=== PATIENT | female | born 1955 | race Caucasian/White ===

== ENCOUNTER 2016-10-24 13:00 | Inpatient (IN) | payer OTHER ==
[~2016-10-24] VITALS: Ht 154.9 cm; Wt 54.8 kg
--- NOTE | 2016-10-24 14:27 | DIAGNOSTIC IMAGING REPORT ---
PROCEDURE: XR CHEST 1 VIEW INDICATION: CHEST PAIN, initial encounter TECHNIQUE: Portable AP view 01:42 p.m. COMPARISON: None. FINDINGS: Right mid lung and basilar infiltrates. Large left pleural effusion with left basilar consolidation. Cardiac silhouette partially obscured. Normal pulmonary vascularity. Bones are unremarkable. IMPRESSION: 1. Large left pleural effusion with left basilar consolidation 2. Right mid lung and basilar infiltrates
--- NOTE | 2016-10-24 15:43 | DIAGNOSTIC IMAGING REPORT ---
PROCEDURE: CTA THORAX WITH CONTRAST INDICATION: SOB AND MULTIPLE PULMONARY INFILTRATES TECHNIQUE: 84 ml of Isovue 370 was injected intravenously and axial images were obtained of the entire thorax with 3D sagittal and coronal MIP reconstructions. COMPARISON: Chest 10/24/2016 FINDINGS: No evidence of pulmonary emboli. There are moderate right upper, middle and lower lobe infiltrates. Dense consolidation of the entire left lower lobe and mild consolidation in the left upper lobe and lingula. Large loculated left and small right pleural effusions. Normal airways. Mild pretracheal, bilateral hilar and subcarinal adenopathy. Normal aorta without dissection or aneurysm pill Normal heart size. Bilateral thyroid nodules. Mild degenerative changes of the spine. IMPRESSION: 1. No evidence of pulmonary emboli 2. Consolidation of the entire left lower lobe with additional bilateral infiltrates consistent with pneumonia, associated large loculated left pleural effusion suspicious for empyema. Recommend thoracentesis. 3. Results discussed with Dr. Tompkins
--- NOTE | 2016-10-24 15:54 | ED ORDER SUMMARY ---
..... Patient: DEYSI CAMPBELL OrderSheet [facility] VisitID: [id number] [address] [place] [address] 61y, F Registration Date/Time: 10/24/2016 ORDER SHEET Weight: 54.4 kg (estimated) Allergies: Codeine GENERAL ORDERS: Chest 1V Urgent (13:30 10/24/2016 Darrell NAILS) (Ack 13:41 Kalen) (13:46 EHjt R.N.) Director Of Distance Learning (Continuous) (13:31 10/24/2016 Darrell NAILS) (13:46 Kimberly R.N.) Cardiac Panel Stat (13:31 10/24/2016 Darrell NAILS) (Ack 13:41 Kalen) (13:46 EHjt R.N.) BNP Urgent (13:31 10/24/2016 Darrell NAILS) (Ack 13:41 Kalen) (13:46 Kimberly R.N.) D-Dimer Urgent (13:31 10/24/2016 Darrell NAILS) (Ack 13:41 Kalen) (13:46 Kimberly R.N.) Oxygen (2 L/min) (NC) (13:31 10/24/2016 Darrell NAILS) (13:46 Kimberly R.N.) Pulse oximeter (13:31 10/24/2016 Darrell NAILS) (13:46 Kimberly R.N.) EKG - ER Stat (13:31 10/24/2016 Darrell NAILS) (Ack 13:41 Kalen) (13:43 LTapper) Peak Flow (pre & post) Stat (13:34 10/24/2016 Darrell NAILS) (Ack 13:41 Kalen) (13:46 Kimberly R.N.) Lipase Urgent (13:36 10/24/2016 Darrell NAILS) (Ack 13:41 Kalen) (13:46 Kimberly R.N.) CTA Thorax w Cont (No) (CHART) Urgent (14:35 10/24/2016 Darrell NAILS) (Ack 14:50 Kalen) (14:55 Kimberly R.N.) Blood Culture (No) (N/A) Urgent (15:40 10/24/2016 Darrell NAILS) (Ack 16:01 [facility] (16:44 Kimberly R.N.) Lactate, Serum Urgent (15:41 10/24/2016 Darrell NAILS) (Ack 16:01 Kalen) (16:44 Kimberly R.N.) PCT (Procalcitonin) Urgent (15:41 10/24/2016 Darrell NAILS) (Ack 16:01 [facility]) (16:44 Kimberly R.N.) - (HOLD THE ANTIBIOTICS UNTIL THE BLOOD CULTURES ARE DRAWN.) (15:46 10/24/2016 Darrell NAILS) (16:44 Kimberly R.N.) MEDICATION ORDERS: Albuterol Neb Tx 2 unit doses (NOW, HHN) (13:33 10/24/2016 Darrell NAILS) (13:58 JZigltim) Potassium Chloride PO 40 meq (NOW) (14:35 10/24/2016 Darrell NAILS) (15:29 Kimberly R.N.) IV FLUIDS: IV Saline Lock (13:31 10/24/2016 Darrell NIALS) (13:54 Kimberly R.N.) Ceftriaxone IV 2 gm/50mL (NOW) (15:41 10/24/2016 Darrell NAILS) (15:59 Kimberly R.N.) Azithromycin IV 500 mg/250 mL (NOW) (15:42 10/24/2016 Darrell NAILS) Dilaudid IV 0.5 mg (NOW) (15:48 10/24/2016 Darrell NAILS) (15:58 Kimberly R.N.) Zofran IV 4 mg (NOW) (15:48 10/24/2016 Darrell NAILS) (16:26 Kimberly R.N.) Vancomycin IV 25 mg/kg (AFTER BLOOD CULTURE) (15:50 10/24/2016 Darrell NIALS) (17:35 Kimberly R.N.) ORDER SHEET NOTES: [Electronically signed by Sarah Marion R.N. (18:38 10/24/2016)] [Electronically signed by Krish Tompkins MD (22:57 10/24/2016)] [Electronically locked/signed by Sarah Marion R.N. (18:38 10/24/2016)]
--- NOTE | 2016-10-24 15:54 | ED NURSING NOTES ---
Clinical Report - Nurses [facility] [address] [place] [address] 10/24/2016 13:00 Patient: DEYSI CAMPBELL TRIAGE Triage time 1305 PM. Acuity: LEVEL 3. Chief Complaint: "FLU", FEVER, COUGH, SORE THROAT and BODY ACHES. Alert. No acute distress. SEPSIS SCREEN: Sepsis Screen. Negative (no infection suspected/documented). ROMI COMA SCORE: Romi Coma Scale: 15- eyes open spontaneously (4); best verbal response- oriented x 4 (5); best motor response- obeys commands (6). --13:20 Sarah Marion R.N. 13:06 10/24/16. BP: 126/42 (regular adult cuff) taken on the left arm, via an automated monitor, while sitting. HR: 86. RR: 19. O2 saturation: 86% on room air. Temp: 97.8 F (oral). Pain level now: 5/10. --13:20 Sarah Marion R.N. Weight: 54.4 kg estimated. Height/Length: 61 inches Per Patient. BMI: 22.7. --13:11 Sarah Marion R.N. Medications None. --13:48 Sarah Marion R.N. Medication/allergy information source: the patient. --13:20 Sarah Marion R.N. Allergies Codeine. --13:48 Sarah Marion R.N. History Arrived by EMS, and from home. Historian: patient. Primary physician (none). ( Pt states feeling sick for the past 2 weeks, coughing fever, diarrhea, chills, SOB, hurts when coughs. Pt states family members sick as well. Pt has not been to a doctor in years. Pt states does not know who called the ambulance.). Onset. (2 weeks). She has had contact with a sick individual. She has had chest congestion, chills, fatigue and diarrhea. No recent travel. 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 (dayquil). EMS treatment CAR INSTALLATIONS SUPERVISOR verbally communicated. BP: 120 / 45 lying. Temp: 982. O2 saturation: 89 room air. Upon arrival patient awake. Oxygen being administered via nasal cannula. PAST MEDICAL HX: Immunizations: status is unknown. Last normal menstrual period- 30 years. SOCIAL HX: Heavy tobacco smoker- less than 1 pack per day. No alcohol use. She has had contact with a sick family member with suspected "flu". No infectious disease exposure. FALL RISK ASSESSMENT: Fall risk assessment completed. No fall risk identified. NUTRITIONAL RISK ASSESSMENT: The nutritional risk assessment revealed no deficiencies. FUNCTIONAL ASSESSMENT: Functional assessment: no impairments noted. LEARNING NEEDS ASSESSMENT: The learning needs assessment revealed no barriers. --13: Sarah Marion R.N. PROBLEMS: Pedal Edema. Tetanus Status. Diarrhea. --:33 Sarah Marion R.N. ADDITIONAL SURGERIES: Hysterectomy. --13:33 Sarah Marion R.N. Interventions ID band on patient. --13: Sarah Marion R.N. PHYSICAL ASSESSMENT To room via stretcher. GENERAL / NEURO / PSYCH: Alert. Oriented X 4. Appears in no acute distress. HEENT: Mucous membranes are pink. RESPIRATORY: Cough. Right mid- costochondral tenderness. Expiratory wheezes in the right lung base posteriorly and mid-lung posteriorly. CVS: Capillary refill less than 2 seconds. Pulses within normal limits. GI / : Abdomen soft and nontender. SKIN: Skin intact. Skin is warm and dry. Normal skin turgor. --13:21 Sarah Marion R.N. NURSING PROGRESS NOTES The initial plan of care for this patient has been created This plan of care was discussed with the patient. Oxygen administered at 2 liters. Pulse oximeter applied; monitor alarms on. Patient gowned. Reassurance given. Two patient identifiers checked. Call light placed in reach. Side rails up x 1. Brakes of bed on. Brakes of chair on. --13: Sarah Marion R.N. 13:09 10/24/16. RR: 18. O2 saturation: 92%. O2 started via nasal cannula at 2 liters/minute. --13: Sarah Marion R.N. EKG time: (1342 PM). EKG was performed by a tech and shown to the ED physician. --13:44 Mauro Ojeda 13:54 10/24/2016 Site #1 started via IV in the right upper arm with an 20g angiocath; one attempt. Blood drawn: rainbow set. Labeled in the presence of the patient and sent to the lab. Saline lock flushed with 10 mL saline. --13:54 Sarah Marion R.N. 13:58 10/24/2016 Albuterol Neb TX Nebulizer 2 unit dose given. Given by the respiratory therapist. Allergies verified and confirmed 5 rights. Chandra Bhakta --13:58 Chandra Bhakta Cardiac rhythm: normal sinus rhythm. Oxygen administered. Pulse oximeter applied. Reassurance given. The patient is calm and resting quietly. Overall patient status is the same- she states feels better. RESPIRATORY: The patient reports cough. No respiratory distress. [facility] ([facility]56 PM). --14:56 Sarah Marion R.N. 15:29 10/24/2016 Potassium Chloride (Potassium Chloride ER) PO Tablets 40 meq given. Allergies verified and confirmed 5 rights. --15:29 Sarah Marion R.N. 15:29 10/24/16. BP: 120/51 (regular adult cuff) taken on the left arm, via an automated monitor, while lying. HR: 96. RR: 30. O2 saturation: 90%. O2 started via nasal cannula at 4 liters/minute. Temp: 98.1 F (oral). Pain level now: 5/10. --15:33 Sarah Marion R.N. Cardiac rhythm: normal sinus rhythm. Oxygen administered by nasal cannula at 2 liters. Pulse oximeter applied. Reassurance given. The patient is calm. Overall patient status is the same- she states feels the same. RESPIRATORY: The patient reports cough. Patient returned from CT. (1530 PM). Two patient identifiers checked. Call light placed in reach. Side rails up x 2. Brakes of bed on. Critical value received by 1426 PM. K: 2.3. Critical value read back. Verified lab result and patient ID. ED physician notifed of critical value. Orders were received. --15:33 Sarah Marion R.N. 15:58 10/24/2016 Dilaudid (HYDROmorphone HCl PF) IVP 0.5 mg given over 1 minute(s) via site #1. Allergies verified, confirmed 5 rights and sedative warning given to the patient. IV patency established. IV site checked: no pain, redness, or swelling. IV flushed thoroughly pre- and post-medication administration. IVP given by RN. --15:58 Sarah Marion R.N. 15:59 10/24/2016 Started 2 gm of Ceftriaxone IVPB in bag #1 50 mL; at 50 mL/hr over 20 minute(s) via site #1 via IV pump. Allergies verified and confirmed 5 rights. IV patency established. IV site checked: no pain, redness, or swelling. IV flushed thoroughly pre- and post-medication administration. --15:59 Sarah Marion R.N. Cardiac rhythm: normal sinus rhythm. Oxygen increased to 5 liters by nasal cannula. Pulse oximeter applied. Reassurance given. Reassessment after oxygen administered and medication administered. She is calm and has had no adverse reaction. Overall patient status is improved- she states feels the same. RESPIRATORY: The patient reports cough. Denies difficulty breathing. Respiratory distress present. Two patient identifiers checked. Call light placed in reach. Side rails up x 2. Bed placed in lowest position. Brakes of bed on. Brakes of chair on. Patient waiting for admit bed and (awating on ICU bed). ( Dr. Ramirez at bedside, pt resting, IBX will be administered as ordered). --16:40 Sarah Marion R.N. 16:00 10/24/16. BP: 112/50. HR: 89. RR: 30. O2 saturation: 93%. O2 started via nasal cannula at 5 liters/minute. Pain level now: 12/21. --16:40 Sarah Marion R.N. 16:20 10/24/2016 Ceftriaxone IVPB Discontinued: bag #1 completed upon admission. Total amount infused: 50 mL. IV patency established. IV site checked: no pain, redness, or swelling. IV flushed thoroughly. --16:45 Sarah Marion R.N. 16:26 10/24/2016 Zofran (Ondansetron HCl) IVP 4 mg given over 2 minute(s) via site #1. Allergies verified and confirmed 5 rights. IV patency established. IV site checked: no pain, redness, or swelling. IV flushed thoroughly pre- and post-medication administration. IVP given by RN. --16:26 Sarah Marion R.N. 16:30 10/24/2016 Dilaudid IVP Response: no adverse reaction. --16:45 Sarah Marion R.N. 16:45 10/24/2016 Zofran IVP Response: no adverse reaction. --16:45 Sarah Marion R.N. 16:47 10/24/16. HR: 86. RR: 28. O2 saturation: 93%. Pain level now: 12/21. --16:51 Sarah Marion R.N. Cardiac rhythm: normal sinus rhythm. Oxygen increased to 12 liters and 90% by venturi mask. Reassurance given. --16:51 Sarah Marion R.N. 17:00 10/24/2016 Started 1 gm of Vancomycin IVPB; at 150 mL/hr over 1 hour(s) via site #1 via IV pump. Allergies verified and confirmed 5 rights. IV patency established. IV site checked: no pain, redness, or swelling. IV flushed thoroughly pre- and post-medication administration. --17:35 Sarah Marion R.N. 17:56 10/24/2016 Vancomycin IVPB Discontinued: bag #1 completed upon admission. Total amount infused: 200 mL. IV patency established. IV site checked: no pain, redness, or swelling. IV flushed thoroughly. --17:56 Sarah Marion R.N. Cardiac rhythm: normal sinus rhythm. Oxygen administered by venturi mask at 12 liters and 90%. Pulse oximeter applied. Reassurance given. Reassessment after oxygen administered. She has had no adverse reaction. Overall patient status is improved- she states feels better. RESPIRATORY: The patient reports cough. Decreased breath sounds in the bases bilaterally. Two patient identifiers checked. Call light placed in reach. Side rails up x 1. Bed placed in lowest position. Brakes of bed on. --17:59 Sarah Marion R.N. 17:00 10/24/16. BP: 99/73. HR: 89. RR: 28. O2 saturation: 93%. Temp: 98 F (oral). Pain level now: 12/21. --17:59 Sarah Marion R.N. Care transferred and report given (JC meeks). --18:38 Sarah Marion R.N. DISPOSITION / DISCHARGE 18:20 10/24/2016 Site #1 reassessed; infusing well. Line flushed with saline. Good blood return present. Converted to saline lock. Flushed with 10 mL saline. --18:35 Sarah Marion R.N. Cardiac rhythm: normal sinus rhythm. Departure time: 1829 PM. Condition at departure: improved and stable. The goals identified in the patient's plan of care were met. Admitted to the Critical Care Unit (1829 PM). Report was given to a nurse. Report included patient's care, treatment, medications, reviewed medication reconcilliation, and condition (including any recent changes or anticipated changes). All questions were answered. Report was acknowledged and care was transferred. ( Pt transferred safely to CCU, Azithromax will be administered in CCU, IV intact, care transferred). FALL RISK ASSESSMENT: Fall risk assessment completed. No fall risk identified. --18:37 Sarah Marion R.N. 18:34 10/24/16. BP: 95/62 (regular adult cuff) taken on the left arm, via an automated monitor, while sitting. HR: 89. RR: 28. O2 saturation: 93%. O2 started via Venti mask at 12 liters/minute. Temp: 98.2 F (oral). Pain level now: 12/21. --18:37 Sarah Marion R.N. Locked/Released at 10/24/2016 18:38 by Sarah Marion R.N.
--- NOTE | 2016-10-24 15:54 | ED ORDER SUMMARY ---
..... Patient: DEYSI CAMPBELL OrderSheet [facility] VisitID: [id number] [address] [place] [address] 61y, F Registration Date/Time: 10/24/2016 ORDER SHEET Weight: 54.4 kg (estimated) Allergies: Codeine GENERAL ORDERS: Chest 1V Urgent (13:30 10/24/2016 Darrell NAILS) (Ack 13:41 Kalen) (13:46 EHjt R.N.) Plastics Nurse (Continuous) (13:31 10/24/2016 Darrell NAILS) (13:46 Kimberly R.N.) Cardiac Panel Stat (13:31 10/24/2016 Darrell NAILS) (Ack 13:41 Kalen) (13:46 EHjt R.N.) BNP Urgent (13:31 10/24/2016 Darrell NAILS) (Ack 13:41 Kalen) (13:46 Kimberly R.N.) D-Dimer Urgent (13:31 10/24/2016 Darrell NAILS) (Ack 13:41 Kalen) (13:46 Kimberly R.N.) Oxygen (2 L/min) (NC) (13:31 10/24/2016 Darrell NAILS) (13:46 Kimberly R.N.) Pulse oximeter (13:31 10/24/2016 Darrell NAILS) (13:46 Kimberly R.N.) EKG - ER Stat (13:31 10/24/2016 Darrell NAILS) (Ack 13:41 Kalen) (13:43 LTapper) Peak Flow (pre & post) Stat (13:34 10/24/2016 Darrell NAILS) (Ack 13:41 Kalen) (13:46 Kimberly R.N.) Lipase Urgent (13:36 10/24/2016 Darrell NAILS) (Ack 13:41 Kalen) (13:46 Kimberly R.N.) CTA Thorax w Cont (No) (CHART) Urgent (14:35 10/24/2016 Darrell NAILS) (Ack 14:50 Kalen) (14:55 Kimberly R.N.) Blood Culture (No) (N/A) Urgent (15:40 10/24/2016 Darrell NAILS) (Ack 16:[facility]) (16:44 Kimberly R.N.) Lactate, Serum Urgent (15:41 10/24/2016 Darrell NAILS) (Ack 16:01 Kalen) (16:44 Kimberly R.N.) PCT (Procalcitonin) Urgent (15:41 10/24/2016 Darrell NAILS) (Ack 16:01 [facility]) (16:44 Kimberly R.N.) - (HOLD THE ANTIBIOTICS UNTIL THE BLOOD CULTURES ARE DRAWN.) (15:46 10/24/2016 Darrell NAILS) (16:44 Kimberly R.N.) MEDICATION ORDERS: Albuterol Neb Tx 2 unit doses (NOW, HHN) (13:33 10/24/2016 Darrell NAILS) (13:58 JZigltim) Potassium Chloride PO 40 meq (NOW) (14:35 10/24/2016 Darrell NAILS) (15:29 Kimberly R.N.) IV FLUIDS: IV Saline Lock (13:31 10/24/2016 Darrell NAILS) (13:54 Kimberly R.N.) Ceftriaxone IV 2 gm/50mL (NOW) (15:41 10/24/2016 Darrell NAILS) (15:59 Kimberly R.N.) Azithromycin IV 500 mg/250 mL (NOW) (15:42 10/24/2016 Darrell NAILS) Dilaudid IV 0.5 mg (NOW) (15:48 10/24/2016 Darrell NAILS) (15:58 Kimberly R.N.) Zofran IV 4 mg (NOW) (15:48 10/24/2016 Darrell NAILS) (16:26 Kimberly R.N.) Vancomycin IV 25 mg/kg (AFTER BLOOD CULTURE) (15:50 10/24/2016 Darrell NAILS) (17:35 Kimberly R.N.) ORDER SHEET NOTES: [Electronically signed by Sarah Marion R.N. (18:38 10/24/2016)] [Electronically signed by Krish Tompkins MD (22:57 10/24/2016)] [Electronically locked/signed by Sarah Marion R.N. (18:38 10/24/2016)]
--- NOTE | 2016-10-24 15:54 | ED CLINICAL REPORT ---
Clinical Report - Physicians/Mid Levels [facility] [address] [place] [address] 10/24/2016 13:00 Patient: DEYSI CAMPBELL Time Seen: 13:13. HISTORY OF PRESENT ILLNESS Chief Complaint: DYSPNEA. This started 2 weeks ago; Cough and aches, gradually worse. and is still present. It was gradual in onset. The dyspnea is described as moderate (to severe). The dyspnea is worsened by cough and is improved by rest. The patient has had scant amounts of sputum, a cough, dyspnea on exertion, chest pain (bilat) and orthopnea. She has had paroxysmal nocturnal dyspnea and experienced sweating episodes. No fever, wheezing, calf pain, foot swelling or numbness. No palpitations. (2 family members with cough). Similar symptoms previously: None. Recent medical care: Not recently seen/assessed. REVIEW OF SYSTEMS The patient has had chills, muscle aches, a cough and difficulty breathing. No fever, decreased vision, ear pain, sore throat or calf pain. No pedal edema, abdominal pain, black stools, bloody stools or constipation. No diarrhea, nausea, vomiting, urinary frequency or joint pain. No skin rash, headache or difficulty with urination. PAST HISTORY PCP: None Illness Denied Ops: Hysterectomy Hosp: Above. SOCIAL HISTORY Current every day smoker. ADDITIONAL NOTES The nursing notes have been reviewed. PHYSICAL EXAM Vital Signs: 10/24/2016 18:34 BP: 95/62. HR: 89. RR: 28. O2 saturation: 93%. Temp: 98.2 F. Pain level now: 12/21. 10/24/2016 17:00 BP: 99/73. HR: 89. RR: 28. O2 saturation: 93%. Temp: 98 F. Pain level now: 12/21. 10/24/2016 16:47 HR: 86. RR: 28. O2 saturation: 93%. Pain level now: 12/21. 10/24/2016 16:00 BP: 112/50. HR: 89. RR: 30. O2 saturation: 93%. Pain level now: 12/21. 10/24/2016 15:29 BP: 120/51. HR: 96. RR: 30. O2 saturation: 90%. Temp: 98.1 F. Pain level now: 01/20. 10/24/2016 13:09 RR: 18. O2 saturation: 92%. 10/24/2016 13:06 BP: 126/42. HR: 86. RR: 19. O2 saturation: 86%. Temp: 97.8 F. Pain level now: 01/20. Appearance: Alert. (Looks chronically ill). Eyes: Eyes normal inspection. ENT: Pharynx normal. Neck: Normal inspection. No jugular venous distention. CVS: Normal heart rate and rhythm. Heart sounds normal. Respiratory: (Bronchial breathsounds L posterioir Rales R posterior Decreased breath sounds L anterior). Abdomen: Soft and nontender. Skin: Skin warm. Normal skin color. Extremities: Extremities exhibit normal ROM. No lower extremity edema. LABS, X-RAYS, AND EKG EKG: No acute process. The study has been independently viewed by me. Chest X-ray: Medium-sized infiltrate in the right upper lobe and right middle lobe and large, consolidated infiltrate in the left lingula and left lower lobe. Chest CT: (No PE, has bilateral infiltrates with large L pleural effusion/empyema). The study was interpreted by the radiologist and contemporaneously by me and discussed with the radiologist. Laboratory Tests: CBC w Diff: (PARISH: 10/24/2016 13:53) ( MsgRcvd 10/24/2016 15:19) Final results Test Result Flag Units (Reference) WHITE BLOOD COUNT 24.3 H K/uL (4.5-11.5) MANUAL DIFFERENTIAL TO FOLLOW. RED BLOOD COUNT 4.01 M/uL (4.00-5.20) HEMOGLOBIN 11.5 L gm/dL (12.0-16.0) HEMATOCRIT 34.4 L % (36.0-46.0) MEAN CELL VOLUME 86 fL (80-100) MEAN CORPUSCULAR HGB 29 pg (26-34) MEAN CORPUSCULAR HGB CONC 34 g/dL (31-37) RED CELL DISTRIBUTION WIDTH 14.5 % (11.6-14.8) PLATELET COUNT 498 H K/uL (150-400) POLY % 74 % (50-75) BAND % 10 H % (0-8) LYMPH 14 L % (25-40) MONO 1 L % (3-14) EOSINOPHIL % 0 % (0-4) BASOPHIL % 0 % (0-2) METAMYELOCYTE % 1 % (0-1) MYELOCYTE 0 % (0-1) OTHER CELL TYPE 0 HYPOCHROMIA 1+ ANISOCYTOSIS 1+ [id number]: (PARISH: 10/24/2016 13:53) ( [facility] [place] 10/[place]/[facility] 14:15) Final results Test Result Flag Units (Reference) D-DIMER QUANTITATIVE 3.77 H ug/mLFEU (0.27-0.52) The primary value of this quantitative assay relates toits negative predictive value (i.e. exclusion) of pulmonaryembolism/deep vein thrombosis/DIC.Elevated levels of d-dimer may also occur with:, age, cancer, inflammation, liver disease,post-op, infection, hematoma, coronary disease, peripheralarteriopathy, bleeding disorders and thrombolytic treatment.Results should be correlated with other clinical andradiological data.Testing Methodology: Latex Immunoassay Lactate, Serum: (PARISH: 10/24/2016 15:45) ( [facility] 10/24/2016 16:37) Final results Test Result Flag Units (Reference) LACTIC ACID 0.9 mmol/L (0.4-2.0) [id number]: (PARISH: 10/24/2016 15:45) ( [facility] [place] 10/24/2016 16:32) Final results Test Result Flag Units (Reference) PROCALCITONIN 1.2 H ng/mL (0-0.5) PCT Concentration: Interpretation : Risk/option for action PCT <=0.5 ng/mL : Systemic : Low risk forinfection(sepsis): progression to severeis not likely. : systemic infection.Local bacterial : CAUTION-PCT levelsinfection is : below 0.5 ng/mL do notpossible. : exclude an infection,because localizedinfections (withoutsystemic signs) may beassociated with suchlow levels. If PCT ismeasured very earlyafter a bacterialchallenge (usually <6hours), these valuesmay still be low. Inthis case PCT shouldbe re-assessed 6-24hours later. PCT >0.5 and : Systemic infection: Moderate risk for<= 2 ng/mL : (sepsis) is : progression to severepossible, but : systemic infection.other conditions : The patient should beare known to : closely monitoredelevate PCT. : both clinically andby re-assessing PCTwithin 6-24 hours. PCT > 2 ng/mL : Systemic infection: High risk for(sepsis) is likely: progression to severeunless other : systemic infection.causes are known. : PCT >= 10 ng/mL : Important systemic: High likelihood ofinflammatory : severe sepsis orresponse, almost : septic shock.exclusively due to:severe bacterial :sepsis or septic :shock. : BNP: (PARISH: 10/24/2016 13:53) ( MsgRcvd 10/24/2016 14:31) Final results Test Result Flag Units (Reference) B-TYPE NATRIURETIC PEPTIDE 166 H pg/ml (5-100) Magnesium: (PARISH: 10/24/2016 13:53) ( MsgRcvd 10/24/2016 14:27) Final results Test Result Flag Units (Reference) GLUCOSE 107 mg/dL (70-110) BUN 23 H mg/dL (7-18) CREATININE 0.7 mg/dL (0.6-1.3) Estimated GFR >60 mL/min Estimated GFR- >60 mL/min Note: Persistent reduction over 3 months in eGFR<60 mL/min/1.73 m2 defines CKD. Patients with eGFR values>=60 mL/min/1.73 m2 may also have CKD if evidence ofpersistent proteinuria. Additional information may be foundat www.[email or web address].org. SODIUM 145 mmol/L (136-145) POTASSIUM 2.3 *L mmol/L (3.5-5.1) CRITICAL RESULTS CALLEDCalled to KEYLA REDD RN 10/24/16 1424Were 2 patient identifiers used? YWas the result read back? Y CHLORIDE 106 mmol/L (98-107) CARBON DIOXIDE 28 mmol/L (21-32) CALCIUM 8.4 L mg/dL (8.5-10.1) TOTAL PROTEIN 6.2 L g/dL (6.4-8.2) ALBUMIN 1.7 L g/dL (3.3-5.0) BILIRUBIN, TOTAL 0.7 mg/dL (0.0-1.0) ALKALINE PHOSPHATASE 273 H U/L (46-116) AST (SGOT) 12 L U/L (15-37) ALT (SGPT) 17 U/L (12-78) MAGNESIUM 2.5 H mg/dL (1.8-2.4) LIPASE 69 L U/L (73-393) CPK 18 L U/L (24-260) TROPONIN I <0.05 L ng/mL (0.00-1.5) TROPONIN REFERENCE RANGE:<0.1 NEGATIVE0.1-1.5 INDETERMINANT>1.5 POSITIVE . PROGRESS AND PROCEDURES Course of Care: 13:29 10/24/16. Hypoxic 14:01 10/24/16. Large bilateral infiltrates. Most of 15:41 10/24/16. CT back. Initial antibiotics Ceftriaxone, azithromycin and vancomycin. 15:59 10/24/16. Discussed with Dr Ramirez. Will admit to ICU in patient Dr Ramirez has seen the patient in the ED. Disposition orders written. Disposition: Admitted. CLINICAL IMPRESSION BILATERAL PNEUMINIA WITH L SIDED EFFUSION/EMPYEMA HYPOXEMIA. HYPOKALEMIA. (Electronically signed by Krish Tompkins MD 10/24/2016 22:57)
--- NOTE | 2016-10-24 15:54 | ED CLINICAL REPORT ---
Clinical Report - Physicians/Mid Levels [facility] [address] [place] [address] 10/24/2016 13:00 Patient: DEYSI CAMPBELL Time Seen: 13:13. HISTORY OF PRESENT ILLNESS Chief Complaint: DYSPNEA. This started 2 weeks ago; Cough and aches, gradually worse. and is still present. It was gradual in onset. The dyspnea is described as moderate (to severe). The dyspnea is worsened by cough and is improved by rest. The patient has had scant amounts of sputum, a cough, dyspnea on exertion, chest pain (bilat) and orthopnea. She has had paroxysmal nocturnal dyspnea and experienced sweating episodes. No fever, wheezing, calf pain, foot swelling or numbness. No palpitations. (2 family members with cough). Similar symptoms previously: None. Recent medical care: Not recently seen/assessed. REVIEW OF SYSTEMS The patient has had chills, muscle aches, a cough and difficulty breathing. No fever, decreased vision, ear pain, sore throat or calf pain. No pedal edema, abdominal pain, black stools, bloody stools or constipation. No diarrhea, nausea, vomiting, urinary frequency or joint pain. No skin rash, headache or difficulty with urination. PAST HISTORY PCP: None Illness Denied Ops: Hysterectomy Hosp: Above. SOCIAL HISTORY Current every day smoker. ADDITIONAL NOTES The nursing notes have been reviewed. PHYSICAL EXAM Vital Signs: 10/24/2016 18:34 BP: 95/62. HR: 89. RR: 28. O2 saturation: 93%. Temp: 98.2 F. Pain level now: 12/21. 10/24/2016 17:00 BP: 99/73. HR: 89. RR: 28. O2 saturation: 93%. Temp: 98 F. Pain level now: 12/21. 10/24/2016 16:47 HR: 86. RR: 28. O2 saturation: 93%. Pain level now: 12/21. 10/24/2016 16:00 BP: 112/50. HR: 89. RR: 30. O2 saturation: 93%. Pain level now: 12/21. 10/24/2016 15:29 BP: 120/51. HR: 96. RR: 30. O2 saturation: 90%. Temp: 98.1 F. Pain level now: 01/20. 10/24/2016 13:09 RR: 18. O2 saturation: 92%. 10/24/2016 13:06 BP: 126/42. HR: 86. RR: 19. O2 saturation: 86%. Temp: 97.8 F. Pain level now: 01/20. Appearance: Alert. (Looks chronically ill). Eyes: Eyes normal inspection. ENT: Pharynx normal. Neck: Normal inspection. No jugular venous distention. CVS: Normal heart rate and rhythm. Heart sounds normal. Respiratory: (Bronchial breathsounds L posterioir Rales R posterior Decreased breath sounds L anterior). Abdomen: Soft and nontender. Skin: Skin warm. Normal skin color. Extremities: Extremities exhibit normal ROM. No lower extremity edema. LABS, X-RAYS, AND EKG EKG: No acute process. The study has been independently viewed by me. Chest X-ray: Medium-sized infiltrate in the right upper lobe and right middle lobe and large, consolidated infiltrate in the left lingula and left lower lobe. Chest CT: (No PE, has bilateral infiltrates with large L pleural effusion/empyema). The study was interpreted by the radiologist and contemporaneously by me and discussed with the radiologist. Laboratory Tests: CBC w Diff: (PARISH: 10/24/2016 13:53) ( MsgRcvd 10/24/2016 15:19) Final results Test Result Flag Units (Reference) WHITE BLOOD COUNT 24.3 H K/uL (4.5-11.5) MANUAL DIFFERENTIAL TO FOLLOW. RED BLOOD COUNT 4.01 M/uL (4.00-5.20) HEMOGLOBIN 11.5 L gm/dL (12.0-16.0) HEMATOCRIT 34.4 L % (36.0-46.0) MEAN CELL VOLUME 86 fL (80-100) MEAN CORPUSCULAR HGB 29 pg (26-34) MEAN CORPUSCULAR HGB CONC 34 g/dL (31-37) RED CELL DISTRIBUTION WIDTH 14.5 % (11.6-14.8) PLATELET COUNT 498 H K/uL (150-400) POLY % 74 % (50-75) BAND % 10 H % (0-8) LYMPH 14 L % (25-40) MONO 1 L % (3-14) EOSINOPHIL % 0 % (0-4) BASOPHIL % 0 % (0-2) METAMYELOCYTE % 1 % (0-1) MYELOCYTE 0 % (0-1) OTHER CELL TYPE 0 HYPOCHROMIA 1+ ANISOCYTOSIS 1+ [id number]: (PARISH: 10/24/2016 13:53) ( [facility] [place] 10/24/2016 14:15) Final results Test Result Flag Units (Reference) D-DIMER QUANTITATIVE 3.77 H ug/mLFEU (0.27-0.52) The primary value of this quantitative assay relates toits negative predictive value (i.e. exclusion) of pulmonaryembolism/deep vein thrombosis/DIC.Elevated levels of d-dimer may also occur with:, age, cancer, inflammation, liver disease,post-op, infection, hematoma, coronary disease, peripheralarteriopathy, bleeding disorders and thrombolytic treatment.Results should be correlated with other clinical andradiological data.Testing Methodology: Latex Immunoassay Lactate, Serum: (PARISH: 10/24/2016 15:45) ( [facility] 10/24/2016 16:37) Final results Test Result Flag Units (Reference) LACTIC ACID 0.9 mmol/L (0.4-2.0) [id number]: (PARISH: 10/24/2016 15:45) ( [facility] 16[facility]32) Final results Test Result Flag Units (Reference) PROCALCITONIN 1.2 H ng/mL (0-0.5) PCT Concentration: Interpretation : Risk/option for action PCT <=0.5 ng/mL : Systemic : Low risk forinfection(sepsis): progression to severeis not likely. : systemic infection.Local bacterial : CAUTION-PCT levelsinfection is : below 0.5 ng/mL do notpossible. : exclude an infection,because localizedinfections (withoutsystemic signs) may beassociated with suchlow levels. If PCT ismeasured very earlyafter a bacterialchallenge (usually <6hours), these valuesmay still be low. Inthis case PCT shouldbe re-assessed 6-24hours later. PCT >0.5 and : Systemic infection: Moderate risk for<= 2 ng/mL : (sepsis) is : progression to severepossible, but : systemic infection.other conditions : The patient should beare known to : closely monitoredelevate PCT. : both clinically andby re-assessing PCTwithin 6-24 hours. PCT > 2 ng/mL : Systemic infection: High risk for(sepsis) is likely: progression to severeunless other : systemic infection.causes are known. : PCT >= 10 ng/mL : Important systemic: High likelihood ofinflammatory : severe sepsis orresponse, almost : septic shock.exclusively due to:severe bacterial :sepsis or septic :shock. : BNP: (PARISH: 10/24/2016 13:53) ( MsgRcvd 10/24/2016 14:31) Final results Test Result Flag Units (Reference) B-TYPE NATRIURETIC PEPTIDE 166 H pg/ml (5-100) Magnesium: (PARISH: 10/24/2016 13:53) ( MsgRcvd 10/24/2016 14:27) Final results Test Result Flag Units (Reference) GLUCOSE 107 mg/dL (70-110) BUN 23 H mg/dL (7-18) CREATININE 0.7 mg/dL (0.6-1.3) Estimated GFR >60 mL/min Estimated GFR- >60 mL/min Note: Persistent reduction over 3 months in eGFR<60 mL/min/1.73 m2 defines CKD. Patients with eGFR values>=60 mL/min/1.73 m2 may also have CKD if evidence ofpersistent proteinuria. Additional information may be foundat www.[email or web address].org. SODIUM 145 mmol/L (136-145) POTASSIUM 2.3 *L mmol/L (3.5-5.1) CRITICAL RESULTS CALLEDCalled to KEYLA REDD RN 10/24/16 1424Were 2 patient identifiers used? YWas the result read back? Y CHLORIDE 106 mmol/L (98-107) CARBON DIOXIDE 28 mmol/L (21-32) CALCIUM 8.4 L mg/dL (8.5-10.1) TOTAL PROTEIN 6.2 L g/dL (6.4-8.2) ALBUMIN 1.7 L g/dL (3.3-5.0) BILIRUBIN, TOTAL 0.7 mg/dL (0.0-1.0) ALKALINE PHOSPHATASE 273 H U/L (46-116) AST (SGOT) 12 L U/L (15-37) ALT (SGPT) 17 U/L (12-78) MAGNESIUM 2.5 H mg/dL (1.8-2.4) LIPASE 69 L U/L (73-393) CPK 18 L U/L (24-260) TROPONIN I <0.05 L ng/mL (0.00-1.5) TROPONIN REFERENCE RANGE:<0.1 NEGATIVE0.1-1.5 INDETERMINANT>1.5 POSITIVE . PROGRESS AND PROCEDURES Course of Care: 13:29 10/24/16. Hypoxic 14:01 10/24/16. Large bilateral infiltrates. Most of 15:41 10/24/16. CT back. Initial antibiotics Ceftriaxone, azithromycin and vancomycin. 15:59 10/24/16. Discussed with Dr Ramirez. Will admit to ICU in patient Dr Ramirez has seen the patient in the ED. Disposition orders written. Disposition: Admitted. CLINICAL IMPRESSION BILATERAL PNEUMINIA WITH L SIDED EFFUSION/EMPYEMA HYPOXEMIA. HYPOKALEMIA. (Electronically signed by Krish Tompkins MD 10/24/2016 22:57)
[2016-10-24 18:31] VITALS: BP 112/57
--- NOTE | 2016-10-24 18:40 | History & Physical Report ---
Admission Admit Date 10/24/16 Information Source Information Source: Self Reliability: Good History Chief Complaint cough and shortness of breath History of Present Illness Pt is a 61 year old female with no significant past medical history that is presenting with a two week history of cough and shortness of breath. Patient initially had a cold which did not get better approximately 2 weeks ago. The patient claims that it initially started with green sputum that alternated between mejia and green. Patients shortness of brath progressively got worse and she began to have pain along the bottom part of her ribs secondary to coughing so frequently. Patient in the past 2 days was noted to have night sweats and worsening malaise. Last night the patient woke up drenched in sweat. Patient at this time decided to come to the hospital for evaluation. Patient History 1. Pneumonia 2. Empyema lung 3. Hypoxemia Social History Pt smokes a half a pack of cigarettes a day for the past 35 years. Pt does not drink or use illicit substances. She lives with her two sons, she does not work currently. She used to work for the [employer]. Family History Family history was reviewed; no changes noted. Medications and Allergies Medications Home Medications None Current Medications Sig/Pop Start time Last Medication Dose Route Stop Time Status Admin Vancomycin HCl/ 200 ML .[PER PHARMACY] 10/25 1844 UNV Dextrose IV Azithromycin 500 MG DAILY 10/25 899 UNV Sodium Chloride 250 ML IV Ceftriaxone Sodium/ 50 ML DAILY 10/25 09 UNV Dextrose IV Pantoprazole Sodium 40 MG DAILY@0600 10/25 0600 UNV Sesquihydrate PO Acetaminophen 650 MG Q4H PRN 10/24 184 UNV PO Albuterol/Ipratropium 3 ML RTQ6H PRN 10/24 184 UNV IN Morphine Sulfate 1 MG Q6H PRN 10/24 1845 UNV IV Sodium Chloride 1,000 ML ASDIRECTED 10/24 184 UNV IV Hydromorphone HCl See Dose ONCE PRN 10/24 1745 AC Insts (1) IV 10/24 2000 Ondansetron HCl 4 MG Q4H PRN 10/24 1745 AC IV 10/24 2000 Sodium Chloride 1,000 ML ASDIRECTED 10/24 1745 AC IV Dose Instructions: (1)Hydromorphone HCl: 0.5-1 MG Allergies Coded Allergies: NKA (10/24/16) Review of Systems Constitutional Fever, Chills, Sweats, Weakness, Malaise. Eyes Denies: Pain, Vision Change, Conjunctival Inflammation, Eyelid Inflammation, Redness, Other. ENT Denies: Ear Pain, Ear Discharge, Nose Pain, Nasal Discharge, Nasal Congestion, Mouth Pain, Mouth Swelling, Throat Pain, Throat Swelling, Other. Respiratory Cough, SOB w/exertion, Wheezing, Pleuritic Pain. Denies: Dry, Hemoptysis. Cardiovascular Denies: Chest Pain, Palpitations, Orthopnea, PND, Edema, Light-headedness, Other. Gastrointestinal Denies: Nausea, Vomiting, Abdominal Pain, Diarrhea, Constipation, Melena, Hematochezia, Other. Genitourinary Denies: Dysuria, Frequency, Incontinence, Hematuria, Retention, Other. Musculoskeletal Denies: Neck Pain, Shoulder Pain, Arm Pain, Back Pain, Hand Pain, Leg Pain, Foot Pain, Other. Skin Denies: Rash, Lesions, Jaundice, Bruising, Other. Neurological Denies: Weakness, Numbness, Incoordination, Change in speech, Confusion, Seizures, Other. Physical Exam Vital Signs / I&Os Vital Signs Date Time Temp Pulse Resp B/P Pulse O2 O2 Flow FiO2 Ox Delivery Rate 10/24 1831 98.1 82 31 112/57 91 Nasal 12.0 Cannula 10/24 1449 2.0 General Appearance Alert, Oriented X3, No acute distress HEENT Atraumatic, Moist mucous membranes Lungs - bronchial breath sounds on the left with better noise transmission - productive cough - breath sounds on right are adequate Neck No JVD, No masses Cardiovascular Regular rate and rhythm, Normal S1 and S2, No murmurs, gallops, rubs Abdomen Soft, No tenderness Extremities No clubbing, No edema, Normal pulses, No tenderness, Strength = upper ext's, Strength = lower ext's Skin No Rashes, No Breakdown Psych/Mental Status Mental status normal LAB Results Laboratory Tests 10/24 10/24 10/24 10/24 1336 1353 1353 1545 Chemistry Plasma Sodium (136 - 145 mmol/L) 145 Plasma Potassium (3.5 - 5.1 mmol/L) 2.3 Plasma Chloride (98 - 107 mmol/L) 106 CO2 (Enzymatic) (21 - 32 mmol/L) 28 BUN (7 - 18 mg/dL) 23 Creatinine (0.6 - 1.3 mg/dL) 0.7 Est GFR ( Amer) (mL/min) >60 Est GFR (Non-Af Amer) (mL/min) >60 Glucose (70 - 110 mg/dL) 107 Lactic Acid (0.4 - 2.0 mmol/L) 0.9 Plasma Calcium (8.5 - 10.1 mg/dL) 8.4 Plasma Magnesium (1.8 - 2.4 mg/dL) 2.5 Total Bilirubin (0.0 - 1.0 mg/dL) 0.7 AST (15 - 37 U/L) 12 ALT (12 - 78 U/L) 17 Alkaline Phosphatase (46 - 116 U/L) 273 Creatine Kinase (24 - 260 U/L) 18 Troponin (0.00 - 1.5 ng/mL) <0.05 B-Natriuretic Peptide (5 - 100 pg/ml) 166 Total Protein (6.4 - 8.2 g/dL) 6.2 Albumin (3.3 - 5.0 g/dL) 1.7 Lipase (73 - 393 U/L) Cancelled 69 Coagulation D-Dimer, Quantitative (0.27 - 0.52 ug/mLFEU) 3.77 Hematology WBC (4.5 - 11.5 K/uL) 24.3 RBC (4.00 - 5.20 M/uL) 4.01 Hgb (12.0 - 16.0 gm/dL) 11.5 Hct (36.0 - 46.0 %) 34.4 MCV (80 - 100 fL) 86 MCH (26 - 34 pg) 29 RDW (11.6 - 14.8 %) 14.5 Neut % (Auto) (50 - 75 %) 74 Lymph % (Auto) (25 - 40 %) 14 [place] % (Auto) (3 - 14 %) 1 Eos % (Auto) (0 - 4 %) 0 Baso % (Auto) (0 - 2 %) 0 Band Neutrophils % (0 - 8 %) 10 Metamyelocytes % (0 - 1 %) 1 Myelocytes (0 - 1 %) 0 Other Cell Type 0 Plt Count, EDTA (150 - 400 K/uL) 498 Hypochromic-Microcytic 1+ Anisocytosis (manual) 1+ PUBS MCHC (31 - 37 g/dL) 34 10/24 1545 Chemistry Procalcitonin (0 - 0.5 ng/mL) 1.2 Microbiology Date/Time Procedure - Status Source Growth 10/24 1544 Blood Culture - RECD BLOOD 10/24 1544 Blood Culture - RECD BLOOD Assessment and Plan Problem List 1. Empyema lung Plan - Pt has radiological evidence of empyema after a 2 week history of upper respiratory infection - Pt has been having a productive cough with green sputum that was not foul smelling - will treat with vancomycin, azithromycin, and ceftriaxone - will place chest tube tomorrow - blood cultures follow up - will obtain daily labs to trend wbc 2. Hypoxemia Plan - Pt was seen to be saturating low on room air - will place on venti mask to acheive SPo2 of 92% minimum - will continuously monitor on pulse oximetry
[2016-10-24 19:13] VITALS: BP 110/48
--- NOTE | 2016-10-24 19:27 | NUR ---
61 YR OLD FEMALE ADMITTED TO 301. ALERT AND ORIENTED. MONITOR SHOWS NSR, SATS 95% ON 15L OXYMASK. RR 28-32.
[2016-10-24 20:17] VITALS: BP 112/50
[2016-10-24 21:25] VITALS: BP 124/75
[2016-10-24 22:00] VITALS: BP 115/62
--- NOTE | 2016-10-24 22:57 | ED DISCHARGE INSTRUCTIONS ---
Patient: DEYSI CAMPBELL General Instructions [facility] VisitID: [id number] [address] [place] [address] 61y, F Registration Date/Time: 10/24/2016 BILATERAL PNEUMINIA WITH L SIDED EFFUSION/EMPYEMA HYPOXEMIA. HYPOKALEMIA. (Electronically signed by Krish Tompkins MD 10/24/2016 22:57)
--- NOTE | 2016-10-24 22:57 | ED MAR SUMMARY ---
..... Medication Administration Record [facility] [address] [place] [address] Patient: DEYSI CAMPBELL Visit ID: [id number] 61y, F Weight: 54.4 kg Height/Length: 61 in BMI: 22.7 ALLERGIES: Codeine Given 13:58 10/24/2016 Chandra Bhakta, Medication Administered: ALBUTEROL [NEB TX], Dose: 2 unit dose Nebulizer Neb TX. Medication Ordered: Albuterol Neb Tx 2 unit doses (NOW, HHN). Given 15:29 10/24/2016 Sarah Marion R.N. Medication Administered: POTASSIUM CHLORIDE [PO] (POTASSIUM CHLORIDE ER), Dose: 40 meq Tablets PO. Medication Ordered: Potassium Chloride PO 40 meq (NOW). Given 15:58 10/24/2016 Sarah Marion R.N. Medication Administered: DILAUDID [IVP] (HYDROMORPHONE HCL PF), Dose: 0.5 mg IVP over 1 minute(s), Site: #1 right upper arm. Medication Ordered: Dilaudid IV 0.5 mg (NOW). Start 15:59 10/24/2016 Sarah Marion R.N., Stop 16:20 10/24/2016 Sarah Marion R.N. Medication Administered: CEFTRIAXONE [IVPB], Dose: 2 gm IVPB over 20 minute(s), Rate: 50 mL/hr, Dispensed: 50 mL bag, Site: #1 right upper arm. Medication Ordered: Ceftriaxone IV 2 gm/50mL (NOW). Given 16:26 10/24/2016 Sarah Marion R.N. Medication Administered: ZOFRAN [IVP] (ONDANSETRON HCL), Dose: 4 mg IVP over 2 minute(s), Site: #1 right upper arm. Medication Ordered: Zofran IV 4 mg (NOW). Start 17:00 10/24/2016 Sarah Marion R.N., Stop 17:56 10/24/2016 Sarah Marion R.N. Medication Administered: VANCOMYCIN [IVPB], Dose: 1 gm IVPB over 1 hour(s), Rate: 150 mL/hr, Site: #1 right upper arm. Medication Ordered: Vancomycin IV 25 mg/kg (AFTER BLOOD CULTURE).
--- NOTE | 2016-10-24 22:57 | ED MED RECONCILIATION SUMMARY ---
Patient: DEYSI CAMPBELL Medication Reconciliation Report [facility] VisitID: [id number] [address] [place] [address] 61y, F Registration Date/Time: 10/24/2016 Weight: 54.4 kg Height/Length: 61 in. BMI: 22.7 ALLERGIES: Codeine The patient's Home Medications are listed below: NONE. The source(s) of the original Home Medication information: patient The following Medications were given to the patient in the Emergency Department: Albuterol [Neb Tx] Neb TX 2 unit dose, administered: 10/24/2016 1:58:00 PM Potassium Chloride [PO] PO 40 meq, administered: 10/24/2016 3:29:00 PM Dilaudid [IVP] IVP 0.5 mg, administered: 10/24/2016 3:58:00 PM Ceftriaxone [IVPB] IVPB bolus 0, then 2 gm 50 mL/hr, administered: 10/24/2016 3:59:00 PM Zofran [IVP] IVP 4 mg, administered: 10/24/2016 4:26:00 PM Vancomycin [IVPB] IVPB bolus 0, then 1 gm 150 mL/hr, administered: 10/24/2016 5:00:00 PM The following Medications were prescribed to the patient: None.
--- NOTE | 2016-10-24 22:57 | ED MED RECONCILIATION SUMMARY ---
Patient: DEYSI CAMPBELL Medication Reconciliation Report [facility] VisitID: [id number] [address] [place] [address] 61y, F Registration Date/Time: 10/24/2016 Weight: 54.4 kg Height/Length: 61 in. BMI: 22.7 ALLERGIES: Codeine The patient's Home Medications are listed below: NONE. The source(s) of the original Home Medication information: patient The following Medications were given to the patient in the Emergency Department: Albuterol [Neb Tx] Neb TX 2 unit dose, administered: 10/24/2016 1:58:00 PM Potassium Chloride [PO] PO 40 meq, administered: 10/24/2016 3:29:00 PM Dilaudid [IVP] IVP 0.5 mg, administered: 10/24/2016 3:58:00 PM Ceftriaxone [IVPB] IVPB bolus 0, then 2 gm 50 mL/hr, administered: 10/24/2016 3:59:00 PM Zofran [IVP] IVP 4 mg, administered: 10/24/2016 4:26:00 PM Vancomycin [IVPB] IVPB bolus 0, then 1 gm 150 mL/hr, administered: 10/24/2016 5:00:00 PM The following Medications were prescribed to the patient: None.
--- NOTE | 2016-10-24 22:57 | ED MAR SUMMARY ---
..... Medication Administration Record [facility] [address] [place] [address] Patient: DEYSI CAMPBELL Visit ID: [id number] 61y, F Weight: 54.4 kg Height/Length: 61 in BMI: 22.7 ALLERGIES: Codeine Given 13:58 10/24/2016 Chandra Bhakta, Medication Administered: ALBUTEROL [NEB TX], Dose: 2 unit dose Nebulizer Neb TX. Medication Ordered: Albuterol Neb Tx 2 unit doses (NOW, HHN). Given 15:29 10/24/2016 Sarah Marion R.N. Medication Administered: POTASSIUM CHLORIDE [PO] (POTASSIUM CHLORIDE ER), Dose: 40 meq Tablets PO. Medication Ordered: Potassium Chloride PO 40 meq (NOW). Given 15:58 10/24/2016 Sarah Marion R.N. Medication Administered: DILAUDID [IVP] (HYDROMORPHONE HCL PF), Dose: 0.5 mg IVP over 1 minute(s), Site: #1 right upper arm. Medication Ordered: Dilaudid IV 0.5 mg (NOW). Start 15:59 10/24/2016 Sarah Marion R.N., Stop 16:20 10/24/2016 Sarah Marion R.N. Medication Administered: CEFTRIAXONE [IVPB], Dose: 2 gm IVPB over 20 minute(s), Rate: 50 mL/hr, Dispensed: 50 mL bag, Site: #1 right upper arm. Medication Ordered: Ceftriaxone IV 2 gm/50mL (NOW). Given 16:26 10/24/2016 Sarah Marion R.N. Medication Administered: ZOFRAN [IVP] (ONDANSETRON HCL), Dose: 4 mg IVP over 2 minute(s), Site: #1 right upper arm. Medication Ordered: Zofran IV 4 mg (NOW). Start 17:00 10/24/2016 Sarah Marion R.N., Stop 17:56 10/24/2016 Sarah Marion R.N. Medication Administered: VANCOMYCIN [IVPB], Dose: 1 gm IVPB over 1 hour(s), Rate: 150 mL/hr, Site: #1 right upper arm. Medication Ordered: Vancomycin IV 25 mg/kg (AFTER BLOOD CULTURE).
--- NOTE | 2016-10-24 22:57 | ED DISCHARGE INSTRUCTIONS ---
Patient: DEYSI CAMPBELL General Instructions [facility] VisitID: [id number] [address] [place] [address] 61y, F Registration Date/Time: 10/24/2016 BILATERAL PNEUMINIA WITH L SIDED EFFUSION/EMPYEMA HYPOXEMIA. HYPOKALEMIA. (Electronically signed by Krish Tompkins MD 10/24/2016 22:57)
[2016-10-24 23:15] VITALS: BP 117/48
[2016-10-25] VITALS (23 sets, daily range): BP systolic 90–123; BP diastolic 43–68
--- NOTE | 2016-10-25 07:11 | NUR ---
PATIENT ABLE TO SLEEP OFF AND ON THIS EVENING, HAS STRONG LOOSE COUGH RELIEVED BY RESPIRATORY TREATMENT AND 1MG MORPHINE, O2 SATS BETWEEN 89-95%, HR INCREASES TO 100'S DURING COUGHING FIT, PAIN IN UPPER ABDOMEN AND LOWER LUNG BASES RELIEVED BY 1MG MORPHINE, ON OXYMASK 12L, AMBULATES TO BATHROOM , STEADY ON FEET
--- NOTE | 2016-10-25 09:41 | NUR ---
Pharmacy To Dose Vancomycin Dx-PNA/Empyema PMH-Smoker Labs- Scr 0.6 CrCl >60 ml/min WBC 26.9 Afebrile Pct 1.2 Flu negative Cx pending ED Course: Vanco 1 gm x1 @1700 Other Abx- CTX 1 gm IV Daily Azithromycin 500mg IV Daily A/P: Will dose vancomycin at 1000mg IV q8h for est SS trough of ~15.4 mcg/ml to begin @1200 as level at this time will be in goal range for redosing. F/U with cx. VT ordered for 1130 on 10/26/16. Pharmacy will cont to follow.
--- NOTE | 2016-10-25 11:01 | NUR ---
PAINFUL, ESPECIALLY WITH COUGHING. MEDICATED X2 WITH 1MG MORPHINE WITH RELIEF. SATS IN MID TO HIGH 90'S ON OXYMASK AT 15L. LOOSE COUGH.
--- NOTE | 2016-10-25 11:12 | NUR ---
PATIENT INTERVIEWED IN CCU AND ID AND PROCEDURE VERIFIED. PT TRANSFERED TO PREOP HOLDING WITH MONITORES CONNECTED FOR VS.
--- NOTE | 2016-10-25 11:54 | NUR ---
TO OR AT 1055.
--- NOTE | 2016-10-25 13:00 | NUR ---
LE; REC'D FROM OR; ROUSES TO VERBAL. SITTIN AT 45 DEGREES. CHEST TUBE TO LO WALL SUCTION. CHEST XRAY OBTAINED. REPORTS PAIN AT OP SITE- PAIN MEDS GIVEN.
--- NOTE | 2016-10-25 13:36 | DIAGNOSTIC IMAGING REPORT ---
PROCEDURE: XR CHEST 1 VIEW INDICATION: Postop chest tube TECHNIQUE: Portable AP view (1250 hours). COMPARISON: Compared to CTA thorax and chest x-ray on 10/24/2016. FINDINGS: Placement of left chest tube to the lung apex with evacuation of loculated left pleural effusion. There is persistent severe left mid and lower lung pneumonia. There is moderate worsening in right mid and lower lung pneumonia. Heart is of normal size. IMPRESSION: 1. Placement of left chest tube with evacuation of left pleural effusion. 2. Persistent severe left mid and lower lung pneumonia. 3. Moderate worsening in right mid and lower lung pneumonia.
--- NOTE | 2016-10-25 13:44 | NUR ---
TX TO ICU ON MONITOR; COMFORTABLE. CHEST TUBE =275ML.
--- NOTE | 2016-10-25 14:30 | OPERATIVE REPORT ---
DATE OF SURGERY: 10/25/2016 SURGEON: Lilo Mccauley III, MD CLINICAL RESEARCH MANAGER: None. PREOPERATIVE DIAGNOSES: 1. Left pleural effusion/empyema 2. Left lung pneumonia POSTOPERATIVE DIAGNOSES: 3. Left pleural effusion/empyema 4. Left lung pneumonia PROCEDURES PERFORMED: 1. Left chest thoracoscopy with evacuation of left pleural effusion/empyema, with takedown of fibrinous loculations 2. Placement of a left chest 36-[place] chest tube ANESTHESIA: General endotracheal. INDICATIONS: A 61-year-old female admitted with diagnosis of pneumonia. White count 26.9. CT evidence of left pleural effusions/empyema and consolidation of the left lung. It was thought that the patient had loculations and felt that drainage of the huge empyema was necessary; however, because the chest tube could not break up the loculations, a thoracoscopy was recommended. SURGICAL FINDINGS: The patient was noted to have a serous-appearing effusion with a considerable amount of left pleural fibrinous exudate on the pleural and parietal surface of the chest cavity and loculations which were broken up. SURGICAL TECHNIQUE: The patient was brought to the operating room and placed in the dorsal supine position where she underwent general endotracheal anesthesia by the anesthesiology department. The patient then had a dual lumen endotracheal tube placed. After appropriate positioning, the patient was placed in the right lateral decubitus position with her left upper extremity abducted from her side. The patient's left chest was prepped using Betadine and draped in a sterile fashion. A site was selected in the posterior axillary line, approximately 3 fingerbreadths from it and approximately at sixth intercostal space, a small transverse incision was made after anesthetizing this area with local anesthetic. Very carefully, we were able to enter the pleural cavity using blunt dissection. In the process, we were able to suction out some of the effusion, and it was sent for cultures. A Thoracoport was placed at this site. Trocar scope was then placed into the Thoracoport with the aforementioned findings noted. Under direct visualization, a separate incision was made in the anterior axillary line, approximately seventh/eighth intercostal space. In the process, we were able to place a blunt retractor within the pleural cavity and break up the loculations under direct visualization. Most of the loculations were occurring inferior-anteriorly and superior-anteriorly. The posterior portion of the lung did not appear to be involved with the fibrinous exudate. The thoracic cavity was irrigated copiously with warm normal saline and antibiotic solution. The irrigant suctioned out. A 36-[place] chest tube was then placed at our anterior axillary incision site and under direct visualization directed anteriorly and cephalad. It was then secured to the skin using 2-0 nylon. The Thoracoport and thoracoscope were withdrawn. The skin at this site was approximated using 2-0 Polysorb subdermal suture after the wound was closed in layers using 2-0 Polysorb. A sterile pressure occlusive dressing was placed over the site. A sterile pressure occlusive dressing was placed over the chest tube site, and the chest tube was attached to a Pleur-evac. The patient tolerated the procedure well, was extubated and transferred to the recovery room in stable condition. There were no intraoperative or anesthetic complications.
--- NOTE | 2016-10-25 14:30 | OPERATIVE REPORT ---
DATE OF SURGERY: 10/25/2016 SURGEON: Lilo Mccauley III, MD WORK ORDER CLERK: None. PREOPERATIVE DIAGNOSES: 1. Left pleural effusion/empyema 2. Left lung pneumonia POSTOPERATIVE DIAGNOSES: 3. Left pleural effusion/empyema 4. Left lung pneumonia PROCEDURES PERFORMED: 1. Left chest thoracoscopy with evacuation of left pleural effusion/empyema, with takedown of fibrinous loculations 2. Placement of a left chest 36-Serbian chest tube ANESTHESIA: General endotracheal. INDICATIONS: A 61-year-old female admitted with diagnosis of pneumonia. White count 26.9. CT evidence of left pleural effusions/empyema and consolidation of the left lung. It was thought that the patient had loculations and felt that drainage of the huge empyema was necessary; however, because the chest tube could not break up the loculations, a thoracoscopy was recommended. SURGICAL FINDINGS: The patient was noted to have a serous-appearing effusion with a considerable amount of left pleural fibrinous exudate on the pleural and parietal surface of the chest cavity and loculations which were broken up. SURGICAL TECHNIQUE: The patient was brought to the operating room and placed in the dorsal supine position where she underwent general endotracheal anesthesia by the anesthesiology department. The patient then had a dual lumen endotracheal tube placed. After appropriate positioning, the patient was placed in the right lateral decubitus position with her left upper extremity abducted from her side. The patient's left chest was prepped using Betadine and draped in a sterile fashion. A site was selected in the posterior axillary line, approximately 3 fingerbreadths from it and approximately at sixth intercostal space, a small transverse incision was made after anesthetizing this area with local anesthetic. Very carefully, we were able to enter the pleural cavity using blunt dissection. In the process, we were able to suction out some of the effusion, and it was sent for cultures. A Thoracoport was placed at this site. Trocar scope was then placed into the Thoracoport with the aforementioned findings noted. Under direct visualization, a separate incision was made in the anterior axillary line, approximately seventh/eighth intercostal space. In the process, we were able to place a blunt retractor within the pleural cavity and break up the loculations under direct visualization. Most of the loculations were occurring inferior-anteriorly and superior-anteriorly. The posterior portion of the lung did not appear to be involved with the fibrinous exudate. The thoracic cavity was irrigated copiously with warm normal saline and antibiotic solution. The irrigant suctioned out. A 36-Serbian chest tube was then placed at our anterior axillary incision site and under direct visualization directed anteriorly and cephalad. It was then secured to the skin using 2-0 nylon. The Thoracoport and thoracoscope were withdrawn. The skin at this site was approximated using 2-0 Polysorb subdermal suture after the wound was closed in layers using 2-0 Polysorb. A sterile pressure occlusive dressing was placed over the site. A sterile pressure occlusive dressing was placed over the chest tube site, and the chest tube was attached to a Pleur-evac. The patient tolerated the procedure well, was extubated and transferred to the recovery room in stable condition. There were no intraoperative or anesthetic complications.
--- NOTE | 2016-10-25 15:32 | NUR ---
RETURNED FROM PACU AT 1330. DROWSY. PLACED ON OXYMASK AT 15L WITH SATS 95%. CT TO 20CM 0F SUCTION. SMALL AMOUNT OF PALE PINK DRAINAGE. LUNGS BRONCHIAL ON L, DIMINISHED ON R. RR 26-32, SHALLOW BRATH. ENCOURAGE TO DB AND COUGH.
--- NOTE | 2016-10-25 16:11 | NUR ---
UP IN CHAIR WITH ONE ASSIST. COUGHING, OTHERWISE MOVED WELL.
--- NOTE | 2016-10-25 16:23 | Progress Note ---
Late Entry Date/Time Late Entry Date and Time LATE ENTRY Date of visit: Time of visit: Subjective General Pt doing well, Patient went for chest tube placement, with no acute events. Patient has not had any difficulty breathing after the procedure. Constitutional Denies: Fever, Chills, Sweats, Weakness, Malaise, Other. Eyes Denies: Pain, Vision Change, Conjunctival Inflammation, Eyelid Inflammation, Redness, Other. Respiratory Denies: Cough, Dry, SOB w/exertion, Wheezing, Hemoptysis, Pleuritic Pain, Sputum , Other. Cardiovascular Denies: Chest Pain, Palpitations, Orthopnea, PND, Edema, Light-headedness, Other. Gastrointestinal Denies: Vomiting, Abdominal Pain. Physical Exam Vital Signs / I&Os Vital Signs Date Time Temp Pulse Resp B/P Pulse O2 O2 Flow FiO2 Ox Delivery Rate 10/25 1517 96 25 90/48 95 Mask 14.0 10/25 1444 82 26 96/47 95 Mask 14.0 10/25 1424 88 24 99/46 97 Mask 14.0 10/25 1400 90 28 104/48 95 14.0 Non-Rebreather Mask 10/25 1327 99.3 90 29 105/49 95 10.0 Non-Rebreather Mask 10/25 1320 99.1 88 44 108/52 98 10/25 1310 89 45 112/65 98 10/25 1250 95 38 113/47 98 10/25 1242 100 45 108/47 96 10/25 1237 99 44 108/47 96 10/25 1232 98.4 102 40 103/57 97 9.0 Non-Rebreather Mask 10/25 0959 12.0 10/25 0900 85 35 115/56 98 Mask 12.0 10/25 0820 Mask 12.0 10/25 0800 87 33 110/55 95 Mask 12.0 10/25 0748 99.1 10/25 0700 85 28 114/64 93 Mask 12.0 10/25 0600 94 28 108/53 91 Mask 12.0 10/25 0500 86 34 104/53 91 10/25 0418 98.1 93 32 103/48 95 10/25 0309 87 31 105/50 92 / 0224 88 28 108/48 91 Mask 12.0 10/25 0100 90 31 112/52 91 10/25 0030 12.0 10/25 0015 88 33 123/65 92 10/24 2315 96 46 117/48 94 10/240 87 24 115/62 94 Mask 12.0 10/24 2124 87 30 124/75 91 Mask 12.0 10/24 2019 12.0 10/24 2016 88 29 112/50 93 Mask 12.0 10/24 2014 Mask 12.0 10/24 1913 84 32 110/48 95 Mask 12.0 10/24 1831 98.1 82 31 112/57 91 Nasal 12.0 Cannula I&O 10/24 0800 10/24 1600 10/25 0000 Intake Total Output Total Balance General Appearance Alert, No acute distress HEENT Atraumatic, PERRLA, Moist mucous membranes Lungs decreased breath sounds on left side Cardiovascular Regular rate and rhythm, Normal S1 and S2, No murmurs, gallops, rubs Abdomen Soft, No tenderness, No guarding, - peg site looks clean Skin No Rashes, No Breakdown Psych/Mental Status Mood normal LAB Results Laboratory Tests 10/25 10/25 0420 1035 Chemistry Plasma Sodium (136 - 145 mmol/L) 145 Plasma Potassium (3.5 - 5.1 mmol/L) 2.6 3.3 Plasma Chloride (98 - 107 mmol/L) 105 CO2 (Enzymatic) (21 - 32 mmol/L) 29 BUN (7 - 18 mg/dL) 13 Creatinine (0.6 - 1.3 mg/dL) 0.6 Est GFR ( Amer) (mL/min) >60 Est GFR (Non-Af Amer) (mL/min) >60 Glucose (70 - 110 mg/dL) 108 Plasma Calcium (8.5 - 10.1 mg/dL) 7.6 Plasma Magnesium (1.8 - 2.4 mg/dL) 2.2 Total Bilirubin (0.0 - 1.0 mg/dL) 0.8 AST (15 - 37 U/L) 10 ALT (12 - 78 U/L) 11 Alkaline Phosphatase (46 - 116 U/L) 225 Total Protein (6.4 - 8.2 g/dL) 4.9 Albumin (3.3 - 5.0 g/dL) 1.5 Coagulation INR (0.8 - 1.2) 1.1 Hematology WBC (4.5 - 11.5 K/uL) 26.9 RBC (4.00 - 5.20 M/uL) 3.46 Hgb (12.0 - 16.0 gm/dL) 10.0 Hct (36.0 - 46.0 %) 29.9 MCV (80 - 100 fL) 86 MCH (26 - 34 pg) 29 RDW (11.6 - 14.8 %) 14.4 Neut % (Auto) (50 - 75 %) 79 Lymph % (Auto) (25 - 40 %) 5 [place] % (Auto) (3 - 14 %) 8 Eos % (Auto) (0 - 4 %) 0 Baso % (Auto) (0 - 2 %) 0 Band Neutrophils % (0 - 8 %) 6 Metamyelocytes % (0 - 1 %) 2 Myelocytes (0 - 1 %) 0 Other Cell Type 0 Plt Count, EDTA (150 - 400 K/uL) 457 RBC Morphology 1+ HYPOCHROMIA PUBS MCHC (31 - 37 g/dL) 34 Microbiology Date/Time Procedure - Status Source Growth 10/25 1135 Deep Wound Culture - RES CHEST 10/25 1135 Deep Wound Culture - RES CHEST 10/25 1135 Gram Stain - RES CHEST 10/25 0721 Influenza Screen - COMP NASALPHAR 10/24 1828 MRSA Screen - RECD NOSE Assessment and Plan Problem List 1. Pneumonia Plan - will continue with vancomycin and azithromycin - will add zosyn and dc ceftriaxone - will obtain daily labs 2. Empyema lung Plan - pt had a chest tube placed today - will follow up culture obtained as well as blood cultures - will continue with drainage and monitor out put 3. Hypoxemia Plan - secondary to empyema - currently improving however patient requiring venti mask at 6L - will continue to wean down as possible
--- NOTE | 2016-10-25 16:59 | NUR ---
TAKING LIQUIDS WELL. ENCOURATED TO DO IS. DOES ABOUT 500. CONTINUED UP IN CHAIR.
--- NOTE | 2016-10-25 19:01 | Progress Note ---
Subjective General Pt seen and examined. Patient had a chest tube placed this morning, and claims that she feels much better than the day prior. Patient is otherwise stable. Constitutional Fever, Sweats, Weakness. Denies: Chills, Malaise, Other. Eyes Denies: Pain, Vision Change, Conjunctival Inflammation, Eyelid Inflammation, Redness, Other. ENT Denies: Ear Pain, Ear Discharge, Nose Pain, Nasal Discharge, Nasal Congestion, Mouth Pain, Mouth Swelling, Throat Pain, Throat Swelling, Other. Respiratory Cough, SOB w/exertion, Pleuritic Pain. Denies: Dry, Wheezing, Hemoptysis, Sputum, Other. Cardiovascular Denies: Chest Pain, Palpitations, Orthopnea, PND, Edema, Light-headedness, Other. Gastrointestinal Denies: Nausea, Vomiting, Abdominal Pain, Diarrhea, Constipation, Melena, Hematochezia, Other. Genitourinary Denies: Dysuria, Frequency, Incontinence, Hematuria, Retention, Other. Musculoskeletal Denies: Neck Pain, Shoulder Pain, Arm Pain, Back Pain, Hand Pain, Leg Pain, Foot Pain, Other. Skin Denies: Rash, Lesions, Jaundice, Bruising, Other. Neurological Denies: Weakness, Numbness, Incoordination, Change in speech, Confusion, Seizures, Other. Physical Exam Vital Signs / I&Os Vital Signs Date Time Temp Pulse Resp B/P Pulse O2 O2 Flow FiO2 Ox Delivery Rate 10/25 1830 98.4 89 28 96/46 94 Mask 14.0 10/25 1708 97 24 95/68 97 Mask 14.0 10/25 1609 82 20 95/49 97 Mask 14.0 10/25 1517 96 25 90/48 95 Mask 14.0 10/25 1444 82 26 96/47 95 Mask 14.0 10/25 1424 88 24 99/46 97 Mask 14.0 10/25 1400 90 28 104/48 95 14.0 Non-Rebreather Mask 10/25 1327 99.3 90 29 105/49 95 10.0 Non-Rebreather Mask 10/25 1320 99.1 88 44 108/52 98 10/25 1310 89 45 112/65 98 10/25 1250 95 38 113/47 98 10/25 1242 100 45 108/47 96 10/25 1237 99 44 108/47 96 10/25 1232 98.4 102 40 103/57 97 9.0 Non-Rebreather Mask 10/25 0959 12.0 10/25 0900 85 35 115/56 98 Mask 12.0 10/25 0820 Mask 12.0 10/25 0800 87 33 110/55 95 Mask 12.0 10/25 0748 99.1 10/25 0700 85 28 114/64 93 Mask 12.0 10/25 0600 94 28 108/53 91 Mask 12.0 10/25 0500 86 34 104/53 91 10/25 0418 98.1 93 32 103/48 95 10/25 0309 87 31 105/50 92 10/25 0224 88 28 108/48 91 Mask 12.0 10/25 0100 90 31 112/52 91 10/25 0030 12.0 10/25 0015 88 33 123/65 92 10/24 2315 96 46 117/48 94 10/24 2200 87 24 115/62 94 Mask 12.0 10/24 2125 87 30 124/75 91 Mask 12.0 10/24 2019 12.0 10/24 2016 88 29 112/50 93 Mask 12.0 10/24 2014 Mask 12.0 10/24 1913 84 32 110/48 95 Mask 12.0 I&O 10/24 0800 10/24 1600 10/25 0000 Intake Total Output Total Balance General Appearance Alert, Oriented X3, No acute distress HEENT Atraumatic, Moist mucous membranes Lungs - right lung clear to auscultation - left lung has decreased breath sounds with ronchi Neck Supple Cardiovascular Regular rate and rhythm, Normal S1 and S2, No murmurs, gallops, rubs Abdomen Soft, No tenderness, No rebound Extremities No edema Skin No Rashes Neurological Normal exam LAB Results Laboratory Tests 10/25 10/25 0420 1035 Chemistry Plasma Sodium (136 - 145 mmol/L) 145 Plasma Potassium (3.5 - 5.1 mmol/L) 2.6 3.3 Plasma Chloride (98 - 107 mmol/L) 105 CO2 (Enzymatic) (21 - 32 mmol/L) 29 BUN (7 - 18 mg/dL) 13 Creatinine (0.6 - 1.3 mg/dL) 0.6 Est GFR ( Amer) (mL/min) >60 Est GFR (Non-Af Amer) (mL/min) >60 Glucose (70 - 110 mg/dL) 108 Plasma Calcium (8.5 - 10.1 mg/dL) 7.6 Plasma Magnesium (1.8 - 2.4 mg/dL) 2.2 Total Bilirubin (0.0 - 1.0 mg/dL) 0.8 AST (15 - 37 U/L) 10 ALT (12 - 78 U/L) 11 Alkaline Phosphatase (46 - 116 U/L) 225 Total Protein (6.4 - 8.2 g/dL) 4.9 Albumin (3.3 - 5.0 g/dL) 1.5 Coagulation INR (0.8 - 1.2) 1.1 Hematology WBC (4.5 - 11.5 K/uL) 26.9 RBC (4.00 - 5.20 M/uL) 3.46 Hgb (12.0 - 16.0 gm/dL) 10.0 Hct (36.0 - 46.0 %) 29.9 MCV (80 - 100 fL) 86 MCH (26 - 34 pg) 29 RDW (11.6 - 14.8 %) 14.4 Neut % (Auto) (50 - 75 %) 79 Lymph % (Auto) (25 - 40 %) 5 [place] % (Auto) (3 - 14 %) 8 Eos % (Auto) (0 - 4 %) 0 Baso % (Auto) (0 - 2 %) 0 Band Neutrophils % (0 - 8 %) 6 Metamyelocytes % (0 - 1 %) 2 Myelocytes (0 - 1 %) 0 Other Cell Type 0 Plt Count, EDTA (150 - 400 K/uL) 457 RBC Morphology 1+ HYPOCHROMIA PUBS MCHC (31 - 37 g/dL) 34 Microbiology Date/Time Procedure - Status Source Growth 10/25 1135 Deep Wound Culture - RES CHEST 10/25 1135 Deep Wound Culture - RES CHEST 10/25 1135 Gram Stain - RES CHEST 10/25 0721 Influenza Screen - COMP NASALPHAR Assessment and Plan Problem List 1. Pneumonia Plan - evidence of pneumonia with empyema - will continue with vancomycin, azithromycin and zosyn - incentive spirometry 2. Empyema lung Plan -s/p chest tube - loculations were broken up - drained over 900 ccs currently - daily monitoring of out put - will await fluid and blood cultures 3. Hypoxemia Plan - much improved compared to yesterday - will c/w nasal cannula at 6 l
[2016-10-26] VITALS (22 sets, daily range): BP systolic 92–138; BP diastolic 41–75
--- NOTE | 2016-10-26 04:14 | NUR ---
PATIENT ON 14L OXYMASK, DESATS QUICKLY IF REMOVED, PATIENT HAS COUGHING ATTACKS AND RESPIRATORY RATE INCREASES TO 40'S, PAIN RATED AT 5-6/10 RELIEVED BY 0.5MG DILAUDID, CHEST TUBE IN PLACE AND FUNCTIONING WELL, CONNECTED TO 20MM SUCTION SUCTIONING SEROUS FLUID, VASELINE GUAZE AND CLAMP AT BEDSIDE, WILL CONTINUE TO MONITOR
--- NOTE | 2016-10-26 07:25 | DIAGNOSTIC IMAGING REPORT ---
PROCEDURE: XR CHEST 1 VIEW INDICATION: S/P THORACOSCOPY WITH CHEST TUBE PLACEMENT TECHNIQUE: Portable AP view 05:10 a.m. COMPARISON: Chest x-ray 10/25/2016 FINDINGS: Stable left chest tube and small residual pleural effusion. Dense left basilar consolidation with slight progression of extensive bilateral infiltrates. Heart size and pulmonary vessels are normal Thorax is normal. IMPRESSION: 1. Stable left chest tube with small residual left pleural effusion 2. Slight progression of extensive bilateral infiltrates
--- NOTE | 2016-10-26 11:13 | NUR ---
PT ENCOURAGED TO USE IS, UP TO 500. VSS, ON 14L OXIMASK. PAIN CONTROLLED. CHEST TUBE TO 20CM WALL SUCTION, NO LEAKS. MINIMAL SERROUS DRAINAGE.
--- NOTE | 2016-10-26 13:47 | NUR ---
PT AMBULATED IN [place] WITH STANDBY ASSIST; USED WHEELCHAIR FOR SUPPORT. TOLERATED VERY WELL.
--- NOTE | 2016-10-26 14:39 | NUR ---
NUTRITION ASSESSMENT: S: Pt admitted with dxy empyema, pneumonia. PMH of PHM, empyema lung, hypoxia, 35 year 1/2 pk smoker. Pt gets up for all meals per nsg and is eating ~50-100% of general diet so far today. O: diet rx: General Regular Thin NKFA Wts: 55.5 kg Ht: 61" BMI: 23 Est Kcals: ~8201-2088 kcals per day Est pro: ~55-70 g per day Est fluids: per MD Meds Rev'd. vanco, protonix, vanco, eMar for complete list/details. Labs Rev'd. (10/26) glucose 138, BUN 10, creat 0.6, Na+ 141, K+ 3.6, ca+ 7.4, total pro 4.4, albumin 1.3, alk phos 180, ast 14, alt 11, HCT 27.7, HGB: 9.3, MCV 87, MCH 29 (10/24) BNP 166, Skin: Paras 17; sugrical inc chest tube A: Pt appears to have a fair to good appetite. Rec obtain wt today, alerted nsg, pt to be weighed today. Rev'd meds and labs. Rec add mighty shakes q meal and offer boost between meals to help proote optimal kcal and protein intake. P: 1. Mighty shakes q meal. 2. Boost between meals bid.
--- NOTE | 2016-10-26 14:49 | NUR ---
PT SLEEPING, 7L NC, SATS 85%
[2016-10-27] VITALS (26 sets, daily range): BP systolic 95–135; BP diastolic 40–71
--- NOTE | 2016-10-27 07:11 | NUR ---
PATIENT HAD 10ML SEROUS FLUID OUT OF CHEST TUBE, PATIENT SWITCHED FROM NASAL CANNULA TO OXYMASK AT BEDTIME, LUNG SOUNDS COARSE RHONCHI THROUGHOUT AND DIMINISHED IN THE LEFT LOWER BASE, COUGH HAS BECOME INCREASINGLY WET THROUGHOUT THE NIGHT, QUESTIONED PATIENT PAIN AT ~0045, STATED LOW LEVEL PAIN AND REFUSED PAIN MEDS BUT DID REQUEST MED FOR SLEEP, MD ORDERED ATIVAN 0.5MG, SLEPT ON AND OFF, SEEMED UNCOMFORTABLE BUT REFUSED PAIN MEDS, IN AM PATIENT HAD COUGHING FEET AND DROPPED SATS A COUPLE TIMES INTO MID TO HIGH 80'S, QUICKLY RECOVERED BUT PAIN SEEMED TO GET OUT OF CONTROL, WHEN QUESTIONED, PATIENT STATED 8/10 PAIN, GAVE 10MG OXYCODONE, 650MG TYLENOL AND 0.5MG DILAUDID, PATIENT CURRENTLY RESTING COMFORTABLY, REPORTED OFF TO TRACI GREENE
--- NOTE | 2016-10-27 07:15 | DIAGNOSTIC IMAGING REPORT ---
PROCEDURE: XR CHEST 1 VIEW INDICATION: Follow-up pneumonia and left chest tube. TECHNIQUE: Portable AP view (0540 hours). COMPARISON: Compared to chest x-ray on 10/26/2016. FINDINGS: Left chest tube is unchanged in position. There has been no change in severe left mid and lower lung pneumonia with dense lower lobe atelectasis. There has been mild aeration of right lung pneumonia. Borderline cardiomegaly. IMPRESSION: 1. Left chest tube is unchanged in position. 2. No change in severe left lung pneumonia with dense left lower lobe atelectasis. 3. Mild improved aeration in severe right lung pneumonia. 4. Borderline cardiomegaly.
--- NOTE | 2016-10-27 13:29 | NUR ---
UP IN CHAIR THIS AM AND ATE WELL FOR BREAKFAST. C/O CP PAIN AND MEDICATED WITH FAIR RELIEF. PT COUGHING AND C/O UPPER ABD. PAIN. MEDICATED AND DR. FROST NOTIFIED. CT SCAN DONE AND PT RETURNED TO ROOM. ABD FIRM. HAD LARGE SORT BM THIS AM.
--- NOTE | 2016-10-27 13:33 | DIAGNOSTIC IMAGING REPORT ---
PROCEDURE: CT ABD/PELVIS WITH CONTRAST CLINICAL INDICATION: abdominal pain and distention, initial encounter TECHNIQUE: 100 ml of Isovue 300 were injected intravenously and axial images were obtained of the entire abdomen and pelvis with sagittal and coronal reformations. COMPARISON: Chest x-ray 10/27/2016 FINDINGS: ABDOMEN: Left chest tube in place with mild bilateral lower lobe consolidation with air bronchograms and alveolar infiltrates in both lung bases. Mild bilateral pleural effusions. Heart size is normal. Small ascites around the tip of the right hepatic lobe. Liver is unremarkable. Suspect a 2 cm gallstone gallbladder with mild wall thickening. Pancreas, spleen, adrenal glands and kidneys are normal. Normal abdominal aorta. Stool throughout the large bowel. 2.5 cm left abdominal wall sessile mass measuring - 15 Hounsfield units, suggestive of a lipoma. PELVIS: Normal appendix. Hysterectomy. Normal bladder. There is no pelvic mass, free fluid or inflammatory changes. There is subcutaneous edema consistent with anasarca. Mild degenerative changes of the spine. IMPRESSION: 1. Bibasilar pneumonia with mild left pleural effusions and left chest tube in place 2. Minor ascites and anasarca. This may be seen with low protein state or fluid overload. Correlate clinically. 3. Suspect a 2 cm gallstone associated with gallbladder wall thickening. Cholecystitis is a possibility.. Recommend right upper quadrant ultrasound. 4. Obstipation 5. Hysterectomy 6. Results discussed with Dr. Ramirez All CT scans at this facility use dose modulation, iterative reconstruction, and/or weight-based dosing when appropriate to reduce radiation dose to as low as reasonably achievable.
--- NOTE | 2016-10-27 13:44 | Progress Note ---
Late Entry Date/Time Late Entry Date and Time LATE ENTRY Date of visit: Time of visit: Subjective General Pt seen and examined this morning. Patient has been having minimal output from her chest tube Constitutional Chills, Malaise. Denies: Fever, Sweats, Weakness, Other. Eyes Denies: Pain, Vision Change, Conjunctival Inflammation, Eyelid Inflammation, Redness, Other. ENT Denies: Ear Pain, Ear Discharge, Nose Pain, Nasal Discharge, Nasal Congestion, Mouth Pain, Mouth Swelling, Throat Pain, Throat Swelling, Other. Respiratory Cough, SOB w/exertion, Pleuritic Pain. Denies: Dry, Wheezing, Hemoptysis, Sputum, Other. Cardiovascular Denies: Chest Pain, Palpitations, Orthopnea, PND, Edema, Light-headedness, Other. Gastrointestinal Denies: Nausea, Vomiting, Abdominal Pain, Diarrhea, Constipation, Melena, Hematochezia, Other. Genitourinary Denies: Dysuria, Frequency, Incontinence, Hematuria, Retention, Other. Musculoskeletal Denies: Neck Pain, Shoulder Pain, Arm Pain, Back Pain, Hand Pain, Leg Pain, Foot Pain, Other. Skin Denies: Rash, Lesions, Jaundice, Bruising, Other. Neurological Denies: Weakness, Numbness, Incoordination, Change in speech, Confusion, Seizures, Other. Physical Exam Vital Signs / I&Os Vital Signs Date Time Temp Pulse Resp B/P Pulse O2 O2 Flow FiO2 Ox Delivery Rate 10/27 1330 99 35 118/54 95 Nasal 6.0 Cannula 10/27 1230 93 36 135/60 89 Nasal Cannula 14 1200 92 35 124/57 94 Nasal 6.0 Cannula 10/27 1100 93 33 118/52 92 Nasal 6.0 Cannula 14 1000 98.2 87 34 95/71 92 Nasal 6.0 Cannula /14 0900 95 31 112/45 92 Nasal 6.0 Cannula /14 0845 6.0 14 0810 94 Nasal 7.0 Cannula 14 0809 89 31 125/57 89 Nasal 7.0 Cannula /14 0700 89 25 109/45 93 Nasal 7.0 Cannula /14 0600 98.1 88 31 121/58 93 Nasal 6.0 Cannula 10/27 0500 82 29 105/53 96 Nasal 6.0 Cannula 10/27 0409 97.9 87 31 114/52 94 Nasal 6.0 Cannula 10/27 0310 90 29 108/40 92 Nasal 6.0 Cannula 10/27 0207 98.8 87 29 100/46 94 Nasal 6.0 Cannula 10/27 0100 99 29 103/46 94 Nasal 6.0 Cannula 10/27 0000 90 29 111/47 92 Nasal 6.0 Cannula 10/26 2300 91 29 115/59 95 Nasal 6.0 Cannula 10/26 2200 98.2 83 32 138/52 90 Nasal 6.0 Cannula 10/26 2110 88 25 102/48 93 Nasal 6.0 Cannula 10/26 2000 Mask 6.0 10/26 1943 6.0 10/26 1900 88 30 108/52 95 Nasal 6.0 Cannula 10/26 1814 98.1 89 30 104/46 92 Nasal 6.0 Cannula 10/26 1700 90 25 110/51 94 Nasal 7.0 Cannula 10/26 1620 87 22 101/47 93 Nasal 7.0 Cannula 10/26 1515 83 30 101/47 95 Nasal 7.0 Cannula 10/26 1426 97.9 77 27 103/50 94 Mask 7.0 I&O 10/26 0800 10/26 1600 10/27 0000 Intake Total 1122 1805 3139 Output Total 950 615 385 Balance 172 1190 2754 General Appearance Alert, Oriented X3, No acute distress HEENT Normal exam, Atraumatic, Moist mucous membranes Lungs - bronchial breath sounds on left side, basilar ronchi present Cardiovascular Regular rate and rhythm, Normal S1 and S2 Abdomen Normal bowel sounds, Soft, No guarding Extremities No cyanosis, No edema Neurological Normal exam, Normal gait, Normal speech, Normal tone LAB Results Laboratory Tests 10/27 10/27 0430 1127 Chemistry Plasma Sodium (136 - 145 mmol/L) 143 Plasma Potassium (3.5 - 5.1 mmol/L) 3.5 Plasma Chloride (98 - 107 mmol/L) 106 CO2 (Enzymatic) (21 - 32 mmol/L) 33 BUN (7 - 18 mg/dL) 8 Creatinine (0.6 - 1.3 mg/dL) 0.6 Est GFR ( Amer) (mL/min) >60 Est GFR (Non-Af Amer) (mL/min) >60 Glucose (70 - 110 mg/dL) 125 Plasma Calcium (8.5 - 10.1 mg/dL) 8.2 Total Bilirubin (0.0 - 1.0 mg/dL) 0.6 AST (15 - 37 U/L) 15 ALT (12 - 78 U/L) 11 Alkaline Phosphatase (46 - 116 U/L) 174 Total Protein (6.4 - 8.2 g/dL) 5.4 Albumin (3.3 - 5.0 g/dL) 1.4 Hematology WBC (4.5 - 11.5 K/uL) 23.5 RBC (4.00 - 5.20 M/uL) 3.15 Hgb (12.0 - 16.0 gm/dL) 9.1 Hct (36.0 - 46.0 %) 27.4 MCV (80 - 100 fL) 87 MCH (26 - 34 pg) 29 RDW (11.6 - 14.8 %) 15.0 Neut % (Auto) (50 - 75 %) 84 Lymph % (Auto) (25 - 40 %) 8 [place] % (Auto) (3 - 14 %) 3 Eos % (Auto) (0 - 4 %) 3 Baso % (Auto) (0 - 2 %) 0 Band Neutrophils % (0 - 8 %) 2 Metamyelocytes % (0 - 1 %) 0 Myelocytes (0 - 1 %) 0 Other Cell Type 0 Plt Count, EDTA (150 - 400 K/uL) 627 PUBS MCHC (31 - 37 g/dL) 33 Toxicology Vancomycin Trough (10.0 - 20.0 ug/mL) 16.0 Assessment and Plan Problem List 1. Pneumonia Plan - will continue with triple antibiotic therapy for the time being - will tredn wbc - will encourage patient to use incentive spirometer 2. Empyema lung Plan - will continue with chest tube drainage - minimal out put today - micro has not grown anything as of yet - will continue to monitor 3. Hypoxemia Plan - continually improving - patient saturating at 95% on 3L NC
--- NOTE | 2016-10-27 14:09 | Progress Note ---
Subjective General Pt doing well this morning on exam. However later in the morning, patient has been complaining of generalized abdominal pain. Patient felt warm to the touch and she was subsequently sent for CT scan of the abdomen. Patient was found to have a gallstone in the gallbladder which may be the source fo the patients problems. Will order ultrasound. Constitutional Malaise. Denies: Fever, Chills, Sweats, Weakness, Other. Eyes Denies: Pain, Vision Change, Conjunctival Inflammation, Eyelid Inflammation, Redness, Other. ENT Denies: Ear Pain, Ear Discharge, Nose Pain, Nasal Discharge, Nasal Congestion, Mouth Pain, Mouth Swelling, Throat Pain, Throat Swelling, Other. Respiratory Cough, SOB w/exertion. Denies: Dry, Wheezing, Hemoptysis, Pleuritic Pain, Sputum, Other. Cardiovascular Denies: Chest Pain, Palpitations, Orthopnea, PND, Edema, Light-headedness, Other. Gastrointestinal Nausea, Abdominal Pain. Denies: Vomiting, Diarrhea, Constipation, Melena, Hematochezia, Other. Genitourinary Denies: Dysuria, Frequency, Incontinence, Hematuria, Retention, Other. Musculoskeletal Denies: Neck Pain, Shoulder Pain, Arm Pain, Back Pain, Hand Pain, Leg Pain, Foot Pain, Other. Skin Denies: Rash, Lesions, Jaundice, Bruising, Other. Physical Exam Vital Signs / I&Os Vital Signs Date Time Temp Pulse Resp B/P Pulse O2 O2 Flow FiO2 Ox Delivery Rate 10/27 1330 99 35 118/54 95 Nasal 6.0 Cannula 10/27 1230 93 36 135/60 89 Nasal Cannula 14 1200 92 35 124/57 94 Nasal 6.0 Cannula 14 1100 93 33 118/52 92 Nasal 6.0 Cannula 14 1000 98.2 87 34 95/71 92 Nasal 6.0 Cannula 14 0900 95 31 112/45 92 Nasal 6.0 Cannula /14 0845 6.0 14 0810 94 Nasal 7.0 Cannula 14 0809 89 31 125/57 89 Nasal 7.0 Cannula 14 0700 89 25 109/45 93 Nasal 7.0 Cannula /14 0600 98.1 88 31 121/58 93 Nasal 6.0 Cannula /14 0500 82 29 105/53 96 Nasal 6.0 Cannula 10/27 0409 97.9 87 31 114/52 94 Nasal 6.0 Cannula 02/14 0310 90 29 108/40 92 Nasal 6.0 Cannula 10/27 0207 98.8 87 29 100/46 94 Nasal 6.0 Cannula 10/27 0100 99 29 103/46 94 Nasal 6.0 Cannula 10/27 0000 90 29 111/47 92 Nasal 6.0 Cannula 10/26 2300 91 29 115/59 95 Nasal 6.0 Cannula 10/26 2200 98.2 83 32 138/52 90 Nasal 6.0 Cannula 10/26 2110 88 25 102/48 93 Nasal 6.0 Cannula 10/26 2000 Mask 6.0 10/26 1943 6.0 10/26 1900 88 30 108/52 95 Nasal 6.0 Cannula 10/26 1814 98.1 89 30 104/46 92 Nasal 6.0 Cannula 10/26 1700 90 25 110/51 94 Nasal 7.0 Cannula 10/26 1620 87 22 101/47 93 Nasal 7.0 Cannula 10/26 1515 83 30 101/47 95 Nasal 7.0 Cannula 10/26 1426 97.9 77 27 103/50 94 Mask 7.0 I&O 10/26 0800 10/26 1600 10/27 0000 Intake Total 1122 1805 3139 Output Total 950 615 385 Balance 172 1190 2754 General Appearance Alert, Oriented X3, No acute distress HEENT Atraumatic Lungs right lung clear, left lung has basilar ronchi with upper lobe bronchial breath sounds Cardiovascular Regular rate and rhythm, Normal S1 and S2, No murmurs, gallops, rubs Abdomen Normal bowel sounds, Soft, - generalized tenderness, warm to the touch Extremities No cyanosis, No clubbing, Normal pulses, No tenderness, Strength = upper ext's, Strength = lower ext's Neurological Normal exam Psych/Mental Status Mental status normal LAB Results Laboratory Tests 10/27 10/27 0430 1127 Chemistry Plasma Sodium (136 - 145 mmol/L) 143 Plasma Potassium (3.5 - 5.1 mmol/L) 3.5 Plasma Chloride (98 - 107 mmol/L) 106 CO2 (Enzymatic) (21 - 32 mmol/L) 33 BUN (7 - 18 mg/dL) 8 Creatinine (0.6 - 1.3 mg/dL) 0.6 Est GFR ( Amer) (mL/min) >60 Est GFR (Non-Af Amer) (mL/min) >60 Glucose (70 - 110 mg/dL) 125 Plasma Calcium (8.5 - 10.1 mg/dL) 8.2 Total Bilirubin (0.0 - 1.0 mg/dL) 0.6 AST (15 - 37 U/L) 15 ALT (12 - 78 U/L) 11 Alkaline Phosphatase (46 - 116 U/L) 174 Total Protein (6.4 - 8.2 g/dL) 5.4 Albumin (3.3 - 5.0 g/dL) 1.4 Hematology WBC (4.5 - 11.5 K/uL) 23.5 RBC (4.00 - 5.20 M/uL) 3.15 Hgb (12.0 - 16.0 gm/dL) 9.1 Hct (36.0 - 46.0 %) 27.4 MCV (80 - 100 fL) 87 MCH (26 - 34 pg) 29 RDW (11.6 - 14.8 %) 15.0 Neut % (Auto) (50 - 75 %) 84 Lymph % (Auto) (25 - 40 %) 8 [place] % (Auto) (3 - 14 %) 3 Eos % (Auto) (0 - 4 %) 3 Baso % (Auto) (0 - 2 %) 0 Band Neutrophils % (0 - 8 %) 2 Metamyelocytes % (0 - 1 %) 0 Myelocytes (0 - 1 %) 0 Other Cell Type 0 Plt Count, EDTA (150 - 400 K/uL) 627 PUBS MCHC (31 - 37 g/dL) 33 Toxicology Vancomycin Trough (10.0 - 20.0 ug/mL) 16.0 Assessment and Plan Problem List 1. Pneumonia Plan - will continue with triple antibiotic therapy - daily blood work until infection is cleared - will continue to check micro for results of empyema fluid - incentive spirometry encouragement 2. Empyema lung Plan - minimal chest tube out put - will consider pulling it tomorrow if out put is minimal - will obtain xray in the am 3. Hypoxemia Plan - improving - pt sitll requiring 3L nc - pts oxygen saturation is on the average 96% 4. Abdominal pain Plan - Pt has new onset abdominal pain - Pt has been having generalized abdominal pain with elevated alk phos - CT scan shows a contracted gallbladder, with possible pergallbladder fluid and gallstone - will continue with antibiotics - will obtain ultra sound
--- NOTE | 2016-10-27 14:46 | NUR ---
Pharmacy To Dose Vancomycin Dx-Empyema/PNA PMH-Smoker Labs- WBC 23.5 Afebrile Scr 0.6 CrCl 85 ml/min CX-GPC Other Abx- Azithromycin 500 mg IV Daily Zosyn 3.375 GM IV q6h Vanco Trough- 16.1 mcg/ml @ 1130 on 10/27/16 18.1 mcg/ml @ 1130 on 10/26/16 A/P: VT is in goal range. Will cont with vancomycin 1000mg IV q8h. Will recheck VT in 4-5 days or sooner if clinically indicated. F/U with cx. Pharmacy will cont to follow.
--- NOTE | 2016-10-27 18:34 | NUR ---
ABD CONTINUES TO BE FIRM. COUGHING WELL. MEDICATED WITH OXYCODONE AND DILAUDID WITH FAIR RELIEF. LUNGS- BRONCHIAL ON L WITH FINE RALES IN THE BASE. R CLEAR. O2 AT 4L/NC.
--- NOTE | 2016-10-27 19:25 | DIAGNOSTIC IMAGING REPORT ---
PROCEDURE: US ABDOMEN ULTRASOUND-LIMITED INDICATION: cholelithiasis TECHNIQUE: Rios scale and color Doppler sonographic images of the abdomen were obtained. COMPARISON: CT abdomen/pelvis 10/27/2016 FINDINGS: 2 cm mobile gallstone. Borderline gallbladder wall thickening (3.1 mm). There is no pericholecystic fluid. CBD measures 4 mm. Negative Torres's sign. Liver measures 20 cm. Normal hepatopetal flow. Aorta and IVC are patent. Pancreas not well visualized. Right kidney measures 10.1 cm. Right pleural effusion is present. IMPRESSION: 1. 2 cm gallstone with borderline wall thickening but negative Torres's sign. 2. Results discussed with Dr. Ramirez
--- NOTE | 2016-10-27 20:36 | NUR ---
PT RESTING IN BED. ALERT AND ORIENTED X3. PAIN AT A 7/10 TO EPIGASTRIC AREA - SHARP, ACHE. MEDICATED WITH IV DILAUDID FOR PAIN. O2 SATS AT 90% ON NC 6 LITERS - MOUTH BREATHING - CHANGED TO OXYMASK AT 10 LITERS - O2 SATS AT 93%. RESPIRATORY THERAPIST IN TO SEE PT. DRESSING TO LEFT CHEST WALL CDI. CHEST TUBE TO WALL SUCTION, -20 CMH2O. NO TIDLING, NO AIR LEAK NOTED. NO DRAINAGE NOTED. PRODUCATIVE COUGH NOTED - PT SWAALLOWS. ENCOURAGED COUGHING AND DEEP BREATHING. ALERT ADN OREITNED X3. MOVING AROUND IN BED ON OWN. SCDS BILAT. WAFFLE MATTRESS IN PLACE. IV TO LFA UNREMARKABLE - INFUSING AT 100/HR. CALL LIGHT WITHIN REACH. NO FURTHER REQUESTS AT THIS TIME.
[2016-10-28] VITALS (21 sets, daily range): BP systolic 109–139; BP diastolic 47–63
--- NOTE | 2016-10-28 05:45 | NUR ---
CHEST XRAY COMPLETED, LABS DRAWN ORDERED. MINIMAL SEROUSANG FLUID NOTED FROM CHEST TUBE, NO TIDALING, NO AIR LEAK NOTED. CHEST TUBES REMAIN TO WALL SUCTION, DRESSING TO LEFT CHEST WALL CDI. PT REMAINS TACHYPNEIC - BREATHING IN THE 20'S TO 30'S THROUGH OUT THE NIGHT. PTS PAIN CONTROLLED, ALLOWING HER TO SLEEP, WITH IV DILAUDID. O2 SATS AT 95% ON AN OXYMASK AT 10 LITERS. ENCOURAGED DEEP BREATHING THROUGH OUT THE NIGHT. NO NOTABLE CHANGES. CALL LIGHT WITHIN REACH. NO REQUESTS THIS AM.
--- NOTE | 2016-10-28 06:01 | DIAGNOSTIC IMAGING REPORT ---
PROCEDURE: XR CHEST 1 VIEW INDICATION: S/P THORACOSCOPY WITH CHEST TUBE PLACEMENT TECHNIQUE: Portable AP view 05:22 a.m. COMPARISON: Chest x-ray 10/27/2016 FINDINGS: Stable left chest tube with continued improvement of mild left pleural effusion. Extensive bilateral alveolar infiltrates with slightly improved aeration in the right upper lobe and left mid lung. Stable heart size and pulmonary vasculature. Thorax is normal. IMPRESSION: 1. Stable left chest tube with improved left pleural effusion 2. Extensive bilateral pneumonia with improved aeration.
--- NOTE | 2016-10-28 16:40 | NUR ---
NUTRITION FOLLOW UP NOTE: Pt eating ~75-100% of general diet. Pt with s/p chest tube placment. Rec yogurt bid with meals to help promote optimal gut bacteria. Rev'd meds and labs. Noted pt with 2 fasting glucose labs 138, 125 respectively. No corticosteroids noted, no hx/o diabetes/hyperglycemia noted; continue to monitor. May want to check A1c if pts future fasting glucose labs >125. Albumin 1.4, rec boost between meals bid to help optimize protein intake. RD to follow up prn/protocol.
--- NOTE | 2016-10-28 18:44 | NUR ---
C/O OF UPPER ABD PAIN. AMBULATED 2 2 IN HALLS THIS AM. HAD 2 SOFT FORMED BM'S. PASSING FLATUS. SLEEPING MORE THIS SHIFT. ENCOURAGED TO USE IS, ONLY DOES ABOUT 250-500. GOOD COUGHING. NO NEW DRAINAGE IN CT. NO AIR LEAK NOTED. CT TO 20 CM SUCTION.
--- NOTE | 2016-10-28 18:52 | Progress Note ---
Subjective General Pt seen and examined. Patient has not made much headway in terms of improvement of her pneumonia. Patient encouraged to use the incentive spirometer and to walk around. Will continue to monitor Constitutional Denies: Fever, Chills, Sweats, Weakness, Malaise, Other. Eyes Denies: Pain, Vision Change, Conjunctival Inflammation, Eyelid Inflammation, Redness, Other. ENT Denies: Ear Pain, Ear Discharge, Nose Pain, Nasal Discharge, Nasal Congestion, Mouth Pain, Mouth Swelling, Throat Pain, Throat Swelling, Other. Respiratory Cough, SOB w/exertion, Pleuritic Pain. Denies: Dry, Wheezing, Hemoptysis, Sputum, Other. Cardiovascular Denies: Chest Pain, Palpitations, Orthopnea, PND, Edema, Light-headedness, Other. Gastrointestinal Denies: Nausea, Vomiting, Abdominal Pain, Diarrhea, Constipation, Melena, Hematochezia, Other. Genitourinary Denies: Dysuria, Frequency, Incontinence, Hematuria, Retention, Other. Musculoskeletal Denies: Neck Pain, Shoulder Pain, Arm Pain, Back Pain, Hand Pain, Leg Pain, Foot Pain, Other. Skin Denies: Rash, Lesions, Jaundice, Bruising, Other. Neurological Denies: Weakness, Numbness, Incoordination, Change in speech, Confusion, Seizures, Other. Physical Exam Vital Signs / I&Os Vital Signs Date Time Temp Pulse Resp B/P Pulse O2 O2 Flow FiO2 Ox Delivery Rate 10/29 1820 95 32 114/56 92 Nasal 6.0 Cannula 10/29 1758 98.8 93 30 91 Nasal 6.0 Cannula 10/29 1718 93 02 1710 125/51 10/29 1702 94 41 Nasal 6.0 Cannula 10/29 1623 94 41 127/53 95 Nasal 6.0 Cannula 10/29 1504 91 28 121/51 96 Nasal 6.0 Cannula 10/29 1402 98.4 90 36 108/44 94 Nasal 6.0 Cannula 10/29 1251 93 24 129/55 92 Nasal 6.0 Cannula 10/29 1116 92 38 123/55 94 Nasal 6.0 Cannula 10/29 1109 5.0 10/29 1010 98.1 88 37 126/57 91 Nasal 5.0 Cannula 10/29 0910 85 29 114/51 97 Nasal 5.0 Cannula 10/29 0820 Nasal 5.0 Cannula 10/29 0819 89 30 114/56 92 Nasal 5.0 Cannula 10/29 0648 98.2 82 29 123/55 94 Nasal 5.0 Cannula 10/29 0512 81 33 111/59 100 10/29 0324 98.2 86 32 119/55 93 Nasal 7.0 Cannula 10/29 0220 87 25 116/50 95 10/29 0051 98.2 10/29 0011 82 33 116/53 96 Nasal 7.0 Cannula 10/28 2202 89 34 129/60 90 Nasal 6.0 Cannula 10/281 85 26 109/52 95 Nasal 6.0 Cannula 10/28 2023 6.0 10/28 1999 86 43 117/63 91 Nasal 6.0 Cannula 10/28 1937 Nasal 6.0 Cannula 10/28 190 99.1 85 37 118/49 92 Nasal 6.0 Cannula I&O 10/28 0800 10/28 1600 10/29 0000 Intake Total 1592 1163 300 Output Total 012 212 8025 Balance 732 263 -720 General Appearance Alert, Oriented X3, No acute distress HEENT Atraumatic, Moist mucous membranes Lungs - persistent left sided ronchi - pt otherwise has a right side clear exam Cardiovascular Regular rate and rhythm, Normal S1 and S2, No murmurs, gallops, rubs Abdomen Normal exam, Soft Extremities No clubbing, No edema, Normal pulses, No tenderness Neurological Normal speech, Normal tone, Cranial nerves intact, No lateralizing signs Psych/Mental Status Mental status normal LAB Results Laboratory Tests 10/29 0510 Chemistry Plasma Sodium (136 - 145 mmol/L) 145 Plasma Potassium (3.5 - 5.1 mmol/L) 3.2 Plasma Chloride (98 - 107 mmol/L) 102 CO2 (Enzymatic) (21 - 32 mmol/L) 38 BUN (7 - 18 mg/dL) 5 Creatinine (0.6 - 1.3 mg/dL) 0.4 Est GFR ( Amer) (mL/min) >60 Est GFR (Non-Af Amer) (mL/min) >60 Glucose (70 - 110 mg/dL) 161 Plasma Calcium (8.5 - 10.1 mg/dL) 8.3 Total Bilirubin (0.0 - 1.0 mg/dL) 0.5 AST (15 - 37 U/L) 18 ALT (12 - 78 U/L) 12 Alkaline Phosphatase (46 - 116 U/L) 174 Total Protein (6.4 - 8.2 g/dL) 4.8 Albumin (3.3 - 5.0 g/dL) 1.3 Hematology WBC (4.5 - 11.5 K/uL) 13.5 RBC (4.00 - 5.20 M/uL) 2.89 Hgb (12.0 - 16.0 gm/dL) 8.3 Hct (36.0 - 46.0 %) 25.1 MCV (80 - 100 fL) 87 MCH (26 - 34 pg) 29 RDW (11.6 - 14.8 %) 14.8 Neut % (Auto) (50 - 75 %) 81.2 Lymph % (Auto) (25 - 40 %) 9.6 [place] % (Auto) (3 - 14 %) 7.4 Eos % (Auto) (0 - 4 %) 1.5 Baso % (Auto) (0 - 2 %) 0.3 Plt Count, EDTA (150 - 400 K/uL) 896 PUBS MCHC (31 - 37 g/dL) 33 Assessment and Plan Problem List 1. Empyema lung Plan - Pt will continue with chest tube - minimal drainage today - no growth seen on fluid culture - will increase dose of Zosyn given slugghish improvement 2. Hypoxemia Plan - currently still present - Pt is still requiring 6 liters via nc - will titrate down as much as possible - will titrate down pain medication as well 3. Abdominal pain
--- NOTE | 2016-10-28 19:43 | NUR ---
PT UP TO COMODE WITH MINIMAL ASSIST. ALERT AND ORIENTED X3. PT STATES "NOT FEELING SHORT OF BREATH AT THIS MINUTE". O2 SATS AT 97% ON [address] LITERS NC. CHEST TUBE IN PLACE - NO DRAINAGE NOTED. TO WALL SUCTION AT -[id number]. DRESSING TO LEFT CHEST WALL CDI. VASELINE GAUZE AND CLAMPS AT BEDSIDE. PT COMPLAINT OF A "LITTLE" DIZZINESS. HEART RATE AT 87. RESPIRATION AT 33. SCDS BILAT. IV TO LFA UNREMARKABLE - INFUSING AT 100/HR. PT DECLINES PAIN MEDCAITION AT THIS TIME - REQUESTS TO BE GIVEN AFTER AMBULATING.
[2016-10-29] VITALS (22 sets, daily range): BP systolic 107–129; BP diastolic 44–73
--- NOTE | 2016-10-29 05:59 | NUR ---
RESPIRATIONS THIS AM FLUCTUATING IN THE 20'S TO 30'S. PRODUCTIVE COUGH NOTED - PT REFUSES COUGH MEDICATION. HEART RATE AT 88. O2 SATS AT 95% ON 7 LITERS NC. MINIMAL SEROUS DRAINAGE NOTED FROM CHEST TUBE. DRESSING TO LEFT CHEST WALL REMAINS CDI. NO TIDALING, NO AIR LEAK NOTED TO CHEST TUBE. ALERT AND ORIENTED. AMBULATED IN HALLWAY X1 - STABLE ON FEET. CHEST XRAY COMPLETED ORERED. CALL LIGHT WITHIN REACH. NO REQUESTS THIS AM.
--- NOTE | 2016-10-29 07:17 | DIAGNOSTIC IMAGING REPORT ---
PROCEDURE: XR CHEST 1 VIEW INDICATION: Follow-up chest tube and pneumonia. TECHNIQUE: Portable AP view (0525 hours). COMPARISON: Compared to chest x-ray on 10/28/2016. FINDINGS: Left chest tube in satisfactory position. There has been no significant change in severe bilateral pneumonia with dense left lower lobe atelectasis. Borderline cardiomegaly. Mediastinum is normal. Thorax is normal. IMPRESSION: 1. Left chest tube unchanged in position. 2. No change in severe bilateral pneumonia.
--- NOTE | 2016-10-29 14:30 | NUR ---
PATIENT UP IN THE CHAIR SINCE LUNCH, CHEST TUBE HAS NO OUTPUT. PAIN CONTROLLED WITH PO OXYCODONE. DENIES ANY NAUSEA OR VOMITTING. DID DE SAT DOWN TO THE 60'S WHEN TOOK THE OXYGEN OFF FOR A COUPLE MINUTES TO BLOW HER NOSE. TACHYPNIC STILL, IN THE 30'S MAINLY. CALL LIGHT WITHIN REACH WILL MONITOR.
--- NOTE | 2016-10-29 18:32 | Progress Note ---
Subjective General Patient seen and examiend. Patient is improving with the use of incentive spirometry and tapering down narcotics. Patient has improved white count with decreased need of accessory oxygen. Constitutional Denies: Fever, Chills, Sweats, Weakness, Malaise, Other. Eyes Denies: Pain, Vision Change, Conjunctival Inflammation, Eyelid Inflammation, Redness, Other. Respiratory SOB w/exertion, Wheezing, Pleuritic Pain. Cardiovascular Denies: Chest Pain, Palpitations, Orthopnea, PND, Edema, Light-headedness, Other. Gastrointestinal Denies: Nausea, Vomiting, Abdominal Pain, Diarrhea, Constipation, Melena, Hematochezia, Other. Genitourinary Denies: Dysuria, Frequency, Incontinence, Hematuria, Retention, Other. Musculoskeletal Denies: Neck Pain, Shoulder Pain, Arm Pain, Back Pain, Hand Pain, Leg Pain, Foot Pain, Other. Neurological Denies: Weakness, Numbness, Incoordination, Change in speech, Confusion, Seizures, Other. Physical Exam General Appearance Alert, Oriented X3, No acute distress HEENT PERRLA, Moist mucous membranes Lungs - bialteral ronchi, improved work of breathing Neck Supple, No JVD, No lymphadenopathy Cardiovascular Regular rate and rhythm, Normal S1 and S2, No murmurs, gallops, rubs Abdomen Soft, No tenderness Extremities Normal exam, No cyanosis, No clubbing Skin No Rashes, No Significant Lesions Psych/Mental Status Mental status normal, Mood normal Assessment and Plan Problem List 1. Empyema lung Plan - will continue to encourage use of incentive spirometry - will continue with antibiotics - encourage ambulation - continue to taper down pain medications as tolerated 2. Hypoxemia Plan - improved work of breathing - decreaed oxygen requirement seen after increase incentive spirometry use
[2016-10-30] VITALS (14 sets, daily range): BP systolic 103–131; BP diastolic 47–68
--- NOTE | 2016-10-30 02:19 | NUR ---
PT HAS EPISODES OF COUGHING FOLLOWED TACHNEPNIA WITH DESATURATION TO THE LOW MID 80'S. PT REQUIRES TO BE INSTRUCTED TO SLOW HER BREATHING DOWN AND ENCOURAGED TO DRINK MORE FLUIDS TO ENABLE HER TO EXPECTORATE HER SPUTUM. PT HAS BEEN ADMINISTERED OXYCODONE 10 MG Q 5 HRS FOR PAIN. PT ALSO NEEDS TO PARTICIPATE MORE IN HER ADLS.
--- NOTE | 2016-10-30 06:35 | DIAGNOSTIC IMAGING REPORT ---
PROCEDURE: XR CHEST 1 VIEW INDICATION: S/P THORACOSCOPY WITH CHEST TUBE PLACEMENT TECHNIQUE: Portable AP view 05:57 a.m. COMPARISON: Chest x-ray 10/29/2016 FINDINGS: Left chest tube has been pulled back with the side-hole just inside the chest wall. Extensive bilateral infiltrates with improvement in both lung bases. Borderline cardiomegaly with stable small right pleural effusion. Bony thorax is unremarkable. IMPRESSION: 1. Left chest tube pulled back with the side-hole just inside the chest wall 2. Extensive bilateral pneumonia with mild improvement in both lung bases.
--- NOTE | 2016-10-30 07:36 | NUR ---
DR. SCHROEDER HERE THIS AM, DILAUDID 0.5 MG IV GIVEN FOR SEDATION. CHEST TUBE REMOVED WITHOUT ANY PROBLEMS. PT HAS A LARGE BROKEN BLISTER ANTERIOR TO THE CT TUBE SITE. COVERED WITH XEROFORM AND BACITRACIN THEN DRY GAUZE. PT RESTING QUIETLY AFTERWARDS
--- NOTE | 2016-10-30 09:02 | NUR ---
In to see patient, as received report that patient is itching on her middle back area, and other creams are not working. Upon assessment, there are some small red bumps over center of back, pt states has been scratching hard with back vacuum spindle sander..Z-guard with zinc applied over entire area of itching, then large heavy drainage pad placed to keep cream in place and protect chair. Pt states feels better already, report given to COLOR TESTER and RN, will continue to monitor, as if this proves to be ineffective, will need to contact MD.
--- NOTE | 2016-10-30 17:38 | NUR ---
CHEST TUBE PULLED BY DR. SCHROEDER THIS AM. BS HAVE COARSE CRACKLES IN THE L MID AND LOWER LUNG FEILD AND IN THE R BASE. REMAINS TACHYPNIC WITH RESP RATE 30-40, HAS BEEN ON 5LPM VIA OXYMASK ALL DAY, CHANGING TO 5LPM VIA NC FOR MEALS, WITH O2 SATS RUNNING ABOUT 93-94%. O2 SATS FOR LAST 2 HOURS RUN 96-97%, LEFT ON NC @ 5LPM TO SEE IF SHE WILL TOLERATE THE NC INSTEAD OF OXYMASK. HAS AMBULATED THE RUSH X3 WITH O2 @ 4LPM AND O2 SATS IN 93-94% RANGE. MED X2 FOR C/O PAIN AT CHEST TUBE SITE. TELE SHOWS NSR WITH NO ECTOPY.
--- NOTE | 2016-10-30 19:16 | Progress Note ---
Subjective General Patient seen and examined. Patient is improving day by day. Paient as been ambulating without difficulty and has been seen to have decreaed oxygen requirement overnight. Constitutional Weakness, Malaise. Denies: Fever, Chills, Sweats, Other. Eyes Denies: Pain. Respiratory Cough, SOB w/exertion. Denies: Dry, Wheezing, Hemoptysis, Pleuritic Pain, Sputum, Other. Cardiovascular Denies: Chest Pain, Palpitations, Orthopnea, PND, Edema, Light-headedness, Other. Gastrointestinal Denies: Nausea, Vomiting, Abdominal Pain, Diarrhea, Constipation, Melena, Hematochezia, Other. Musculoskeletal Denies: Neck Pain, Shoulder Pain, Arm Pain, Back Pain, Hand Pain, Leg Pain, Foot Pain, Other. Neurological Denies: Weakness, Numbness, Incoordination, Change in speech, Confusion, Seizures, Other. Physical Exam General Appearance Alert, Oriented X3, No acute distress Lungs - bilateral ronchi - non productive cough Cardiovascular Regular rate and rhythm, Normal S1 and S2, No murmurs, gallops, rubs Extremities No cyanosis, No clubbing, Normal pulses, No tenderness Neurological Normal gait, Normal speech, Sensation intact, Reflexes 2+ and equal Psych/Mental Status Mood normal Assessment and Plan Problem List 1. Empyema lung Plan - will continue with antibiotics - encourage incentive spirometry use - will consider switching to oral antibiotics if white count continues to improve 2. Hypoxemia Plan - pt currently saturating well on 2 L - will continue with titrating oxygen requirement 3. Abdominal pain Plan - secondary to frequent cooughing - will provide with cough suppressant - oral pain medicaiton only
[2016-10-31 03:49] VITALS: BP 113/57
[2016-10-31 06:34] VITALS: BP 116/49
[2016-10-31 10:31] VITALS: BP 101/46
[2016-10-31 14:57] VITALS: BP 96/56
--- NOTE | 2016-10-31 17:01 | Progress Note ---
Subjective General Pt seen and examined, patient is doing better compared to yesterday. Patients oxygen requirement has gone down significantly and her work of breathing has decreased. Patient is otherwise stable. Constitutional Denies: Fever, Chills, Sweats, Weakness, Malaise, Other. Eyes Denies: Pain, Vision Change, Conjunctival Inflammation, Eyelid Inflammation, Redness, Other. Respiratory Cough, SOB w/exertion. Denies: Dry, Wheezing, Hemoptysis, Pleuritic Pain, Sputum, Other. Cardiovascular Denies: Chest Pain, Palpitations, Orthopnea, PND, Edema, Light-headedness, Other. Gastrointestinal Denies: Nausea, Vomiting, Abdominal Pain, Diarrhea, Constipation, Melena, Hematochezia, Other. Genitourinary Denies: Dysuria, Frequency, Incontinence, Hematuria, Retention, Other. Musculoskeletal Denies: Neck Pain, Shoulder Pain, Arm Pain, Back Pain, Hand Pain, Leg Pain, Foot Pain, Other. Skin Denies: Rash, Lesions, Jaundice, Bruising, Other. Neurological Denies: Weakness, Numbness, Incoordination, Change in speech, Confusion, Seizures, Other. Physical Exam Vital Signs / I&Os Vital Signs Date Time Temp Pulse Resp B/P Pulse O2 O2 Flow FiO2 Ox Delivery Rate 10/31 1457 98.4 97 17 96 Nasal 3.5 Cannula 10/31 1031 98.1 92 62 101/46 93 Nasal 3.5 Cannula 10/31 0942 93 Nasal 3.5 Cannula 10/31 0941 92 Nasal 4.0 Cannula 10/31 0926 Nasal 3.0 Cannula 10/31 0727 3.0 10/31 0634 98.1 88 33 116/49 91 Nasal 3.0 Cannula 10/31 0349 98.4 70 34 113/57 90 Nasal 2.0 Cannula 10/30 2313 2.0 10/30 2218 98.4 87 36 112/56 93 Nasal 3.0 Cannula 10/30 1999 3.0 10/30 195 4.0 10/30 1815 98.4 88 20 131/55 96 Room Air 10/30 1715 97.9 72 16 111/67 93 Room Air 10/30 1700 97.7 75 20 110/68 93 Room Air I&O 10/30 0800 10/30 1600 10/31 0000 Intake Total 1452 240 Output Total 1040 1375 2650 Balance -398 -1135 -2650 General Appearance Alert, Oriented X3, No acute distress HEENT Atraumatic, PERRLA, Moist mucous membranes Lungs - left sided ronchi and crackles - improved work of breathing bilaterally Cardiovascular Regular rate and rhythm, Normal S1 and S2, No murmurs, gallops, rubs Abdomen Soft, No tenderness, No masses Extremities No clubbing, No edema, Normal pulses, No tenderness Skin No Breakdown, No Significant Lesions Neurological Normal speech, Normal tone Psych/Mental Status Mental status normal LAB Results Laboratory Tests 10/31 10/31 0445 1130 Chemistry Plasma Sodium (136 - 145 mmol/L) 142 Plasma Potassium (3.5 - 5.1 mmol/L) 3.2 Plasma Chloride (98 - 107 mmol/L) 103 CO2 (Enzymatic) (21 - 32 mmol/L) 33 BUN (7 - 18 mg/dL) 7 Creatinine (0.6 - 1.3 mg/dL) 0.4 Est GFR ( Amer) (mL/min) >60 Est GFR (Non-Af Amer) (mL/min) >60 Glucose (70 - 110 mg/dL) 105 Plasma Calcium (8.5 - 10.1 mg/dL) 8.2 Total Bilirubin (0.0 - 1.0 mg/dL) 0.3 AST (15 - 37 U/L) 30 ALT (12 - 78 U/L) 27 Alkaline Phosphatase (46 - 116 U/L) 152 Total Protein (6.4 - 8.2 g/dL) 5.9 Albumin (3.3 - 5.0 g/dL) 1.4 Hematology WBC (4.5 - 11.5 K/uL) 12.5 RBC (4.00 - 5.20 M/uL) 2.79 Hgb (12.0 - 16.0 gm/dL) 7.9 Hct (36.0 - 46.0 %) 24.1 MCV (80 - 100 fL) 87 MCH (26 - 34 pg) 28 RDW (11.6 - 14.8 %) 14.5 Neut % (Auto) (50 - 75 %) 71.0 Lymph % (Auto) (25 - 40 %) 16.5 [place] % (Auto) (3 - 14 %) 8.8 Eos % (Auto) (0 - 4 %) 2.8 Baso % (Auto) (0 - 2 %) 0.9 Plt Count, EDTA (150 - 400 K/uL) 1199 PUBS MCHC (31 - 37 g/dL) 33 Toxicology Vancomycin Trough (10.0 - 20.0 ug/mL) 16.8 Assessment and Plan Problem List 1. Empyema lung Plan - chest tube taken out with little no to resulting problems - pt has had improved oxygenation - will encourage incentive spirometry use - c/w antibiotics 2. Hypoxemia Plan - pts oxygen requirement is going down day by day - will continue to taper down oxygen via nasal cannula 3. Pneumonia
--- NOTE | 2016-10-31 17:44 | NUR ---
HAS AMBULATED RUSH X4 TODAY WITH O2, AND SATS OF 89-91%. WHEN IN CHAIR OR BED SATS RUN 95-99% ON 3LPM VIA NC. RESP RATE RUNS HIGH 20S TO LOW 30S. BS ARE DIMININISHED IN BOTH BASES WITH COARSE RHOCHI LLL. PASSING SMALL AMOUNTS OF VERY SOFT BROWN STOOL. TELE SHOWS NSR WITH NO ECTOPY.
[2016-10-31 17:47] VITALS: BP 113/48
[2016-10-31 23:07] VITALS: BP 104/57
--- NOTE | 2016-11-01 01:37 | NUR ---
PT ALERT AND ORIENTED, COOPERATIVE WITH CARE. NO DISTRESS NOTED. PT COOPERATIVE WITH CARE. O2SAT 98% ON 3.5 LPM VIA NC. PT STATES SHE HAS A PRODUCTIVE COUGH WITH CLEAR THICK SPUTUM. HR 71, NSR NOTED. PT C/O PAIN TO THE LEFT SIDE, AND BACK, PRN PAIN MEDICATION GIVEN WITH POSITIVE RESULTS. PT ABLE TO AMBULATE TO BR, STEADY ON FEEL. CHEST DRESSING C/D/I. PT USE IS AND ABLE TO GET TO A VOLUME 250, ENCOURAGED PT TO USE IS Q 1 HR WHILE AWAKE. NO OTHER COMPLAINTS. CALL LIGHT IN REACH, BED IN LOWEST POSITION, WCTM.
[2016-11-01 04:28] VITALS: BP 103/46
[2016-11-01 07:33] VITALS: BP 102/51
--- NOTE | 2016-11-01 08:36 | Progress Note ---
Subjective General Note Date: November 01, 2016 Admission Date: October 24, 2016 Hospital Day: 9 PCP: None Status: Inpatient Advanced Directive: FULL CODE Room: 301 Brief History: The patient is a 61-year-old white female with a significant past medical history of nicotine dependence-smoking who presented to [facility] emergency room on the day of admission secondary to complaints of cough and shortness of breath. [facility] ER evaluation was consistent with pneumonia/empyema left side. Secondary to the above, the patient was admitted by Tucker Ramirez M.D. for further evaluation and treatment For other history present illness, past medical history, family history, social history, review of systems, and admission physical examination please see the patient's history and physical examination and ER visit note in the patient's medical record. Subjective: The patient states she is doing well today. Pain was adequately controlled. Shortness of breath improved. Denies fever or chills. Patient requests: None Medications and Allergies Medications Current Medications Sig/Pop Start time Last Medication Dose Route Stop Time Status Admin Potassium Chloride 80 MEQ ONCE 10/31 1015 CAN IV Aspirin 81 MG QAM 10/30 1830 AC 10/31 PO 0803 Piperacillin Sod/ 4.5 GM Q6HR 10/30 1800 AC 11/01 Tazobactam Sod IV 0639 Dextrose/Water 100 ML Hydromorphone HCl 0.5 MG Q4H PRN 10/29 184 AC 10/30 IV 0717 Guaifenesin/ See Dose Q4H PRN 10/27 1915 AC 10/31 Dextromethorphan Insts (1) PO 0123 Lactobacillus 1 TAB WC 10/27 1330 AC 10/31 PO 1701 Docusate Sodium 100 MG BID 10/26 1459 AC 10/31 PO 2101 Diphenhydramine HCl See Dose Q6H PRN 10/26 0800 AC 10/26 Insts (2) PO 1823 Oxycodone HCl See Dose Q4H PRN 10/26 0645 AC 11/01 Insts (3) PO 0656 Pantoprazole Sodium 40 MG DAILY@0600 10/25 0600 AC 11/01 Sesquihydrate PO 0638 Acetaminophen 650 MG Q4H PRN 10/24 1845 AC 10/27 PO 0604 Albuterol/Ipratropium 3 ML RTQ6H PRN 10/24 184 10/30 IN 2313 Dose Instructions: (1)Guaifenesin/Dextromethorphan: 10 - 20 mL (2)Diphenhydramine HCl: 25 - 50 MG (3)Oxycodone HCl: 5 - 10 MG Allergies Coded Allergies: Codeine (Severe, Hives (VERIFIED WITH PATIENT) 10/27/16) Physical Exam Vital Signs / I&Os Vital Signs Date Time Temp Pulse Resp B/P Pulse O2 O2 Flow FiO2 Ox Delivery Rate 11/01 0828 4.0 11/01 0733 97.5 81 29 102/51 92 Nasal 4.0 Cannula 11/01 0659 92 Nasal 4.0 Cannula 11/01 0428 98.1 68 33 103/46 96 Nasal 3.5 Cannula 10/31 2307 98.1 83 28 104/57 96 Nasal 3.5 Cannula 10/31 2108 Nasal Cannula 10/31 1916 3.5 10/31 1747 39 113/48 10/31 1744 98.1 85 93 Nasal 3.5 Cannula 10/31 1457 98.4 97 17 96/56 96 Nasal 3.5 Cannula 10/31 1031 98.1 92 62 101/46 93 Nasal 3.5 Cannula 10/31 0942 93 Nasal 3.5 Cannula 10/31 0941 92 Nasal 4.0 Cannula 10/31 0926 Nasal 3.0 Cannula I&O 11/01 0000 10/31 1600 10/31 0800 Intake Total 1167 735 785 Output Total 900 1050 1050 Balance 267 -315 -265 General Appearance Alert, Oriented X3, Cooperative, No acute distress Lungs Normal air movement, rhonchi present left base, basilar rales Cardiovascular Regular rate and rhythm, Normal S1 and S2 Abdomen Normal bowel sounds, Soft, No tenderness Extremities No cyanosis, No clubbing Neurological Grossly normal Psych/Mental Status Mental status normal, Mood normal LAB Results Laboratory Tests 11/01 11/01 10/31 0420 0420 1130 Chemistry Plasma Sodium (136 - 145 mmol/L) 140 Plasma Potassium (3.5 - 5.1 mmol/L) 4.2 Plasma Chloride (98 - 107 mmol/L) 103 CO2 (Enzymatic) (21 - 32 mmol/L) 32 BUN (7 - 18 mg/dL) 9 Creatinine (0.6 - 1.3 mg/dL) 0.5 Est GFR ( Amer) (mL/min) >60 Est GFR (Non-Af Amer) (mL/min) >60 Glucose (70 - 110 mg/dL) 92 Plasma Calcium (8.5 - 10.1 mg/dL) 9.0 Iron (35 - 150 ug/dL) 21 TIBC (260 - 445 ug/dL) 216 Iron Saturation (15 - 50 %) 10 Vitamin B12 (211 - 946 pg/mL) 838 Folate (>3.0 ng/mL) 13.4 Hematology WBC (4.5 - 11.5 K/uL) 12.4 RBC (4.00 - 5.20 M/uL) 3.09 Hgb (12.0 - 16.0 gm/dL) 8.7 Hct (36.0 - 46.0 %) 26.8 MCV (80 - 100 fL) 87 MCH (26 - 34 pg) 28 RDW (11.6 - 14.8 %) 14.3 Neut % (Auto) (50 - 75 %) 60 Lymph % (Auto) (25 - 40 %) 22 [place] % (Auto) (3 - 14 %) 4 Eos % (Auto) (0 - 4 %) 3 Baso % (Auto) (0 - 2 %) 1 Band Neutrophils % (0 - 8 %) 10 Metamyelocytes % (0 - 1 %) 0 Myelocytes (0 - 1 %) 0 Other Cell Type THROMBOCYTOSIS Plt Count, EDTA (150 - 400 K/uL) 1509 Anisocytosis (manual) 1+ PUBS MCHC (31 - 37 g/dL) 33 Toxicology Vancomycin Trough (10.0 - 20.0 ug/mL) 16.8 Assessment and Plan Problem List 1. Pneumonia Plan -Status improved -Persistent leukocytosis of mild degree -Afebrile -Chest pain improved -Continue Zosyn all trend dosage to 3.375 g IV every 6 hours -Monitor 2. Empyema lung Plan -Stable -Repeat chest x-ray in a.m. -Persistent leukocytosis -Cultures negative -Continue Zosyn as noted above -Consider switch to oral medications with normalization of WBC. 3. Thrombocytosis Status Acute Onset Date Unknown Plan -Patient with thrombocytosis -Iron deficiency anemia present -Pneumonia/empyema -We'll discuss with Dr. Mascorro regarding further evaluation and treatment 4. Iron deficiency anemia Status Chronic Onset Date Unknown Plan -Patient with findings of iron deficiency anemia -Ferrous sulfate 325 mg by mouth 3 times a day Current status: Fair, unstable Anticipated discharge date: Anticipated discharge in 2-3 days with improved status Anticipated discharge placement: Home Patient care time: Time spent in chart review, patient interview, physical exam, CPOE, and care documentation: 35 minutes Visit to patient today: 1 Complexity of care: Moderate E&M Codes Rounding: Inpt-High/[id number]
[2016-11-01 10:49] VITALS: BP 96/42
[2016-11-01 14:30] VITALS: BP 104/46
--- NOTE | 2016-11-01 20:15 | NUR ---
PT RESTING IN BED, NO DISTRESS NOTED, PT IS 92-94% ON ROOM AIR WHILE AWAKE. PT ENCOURAGED TO COUGH DEEP BREATH, AND TO US IS WHEN AWAKE. PT DENIES ANY CHEST PAIN, SOB, NAUSEA, AND VOMITING. PAIN TOLERABLE AT THIS TIME. IV FLUSHED WELL. DR. CLEMENTE PRESENT ON UNIT, AND RN ASKED IF PATIENT COULD BE CHANGED TO PO ABX, STATED NOT AT THIS TIME. VSS. CALL LIGHT IN REACH , BED IN LOWEST POSITION, WCTM.
[2016-11-01 22:46] VITALS: BP 103/53
--- NOTE | 2016-11-01 23:10 | NUR ---
PT SLEEPING, O2 SAT DROPPED DOWN TO 85% ON ROOM AIR. PT PLACED ON 2 LPM O2 VIA NC. AFTER BEING PLACED ON O2, O2 SAT IS 94% WHILE ASLEEP. VSS. BALDOMERO.
--- NOTE | 2016-11-02 04:51 | NUR ---
PT RESTED WELL OVERNIGHT, NO DISTRESS NOTED THIS AM. PT COOPERATIVE WITH CARE. VSS. PT INDEPENDENT IN ROOM. IV INTACT IN THE LFA, WNL, SL. BED IN LOWEST POSITION, CALL LIGHT IN REACH, WCTM.
[2016-11-02 05:32] VITALS: BP 114/59
--- NOTE | 2016-11-02 07:32 | Progress Note ---
Subjective General Note Date: November 02, 2016 Admission Date: October 24, 2016 Hospital Day: 10 PCP: None Status: Inpatient Advanced Directive: FULL CODE Room: 301 Brief History: The patient is a 61-year-old white female with a significant past medical history of nicotine dependence-smoking who presented to [facility] emergency room on the day of admission secondary to complaints of cough and shortness of breath. [facility] ER evaluation was consistent with pneumonia/empyema left side. Secondary to the above, the patient was admitted by Tucker Ramirez M.D. for further evaluation and treatment For other history present illness, past medical history, family history, social history, review of systems, and admission physical examination please see the patient's history and physical examination and ER visit note in the patient's medical record. Subjective: The patient states she is doing well today. Shortness of breath improved. Denies fever or chills. Chest pain improved Patient requests: None Medications and Allergies Medications Current Medications Sig/Pop Start time Last Medication Dose Route Stop Time Status Admin Piperacillin/ 50 ML Q6HR 11/01 1200 AC 11/02 Tazobactam/Dextrose IV 0513 Aspirin 81 MG QAM 10/30 1830 AC 11/01 PO 0953 Hydromorphone HCl 0.5 MG Q4H PRN 10/29 184 AC 10/30 IV 0717 Guaifenesin/ See Dose Q4H PRN 10/27 1915 AC 10/31 Dextromethorphan Insts (1) PO 0123 Lactobacillus 1 TAB WC 10/27 1330 AC 11/01 PO 1858 Docusate Sodium 100 MG BID 10/26 1459 AC 10/31 PO 2101 Diphenhydramine HCl See Dose Q6H PRN 10/26 0800 AC 10/26 Insts (2) PO 1823 Oxycodone HCl See Dose Q4H PRN 10/26 0645 AC 11/02 Insts (3) PO 0700 Pantoprazole Sodium 40 MG DAILY@0600 10/25 0600 AC 11/02 Sesquihydrate PO 0512 Acetaminophen 650 MG Q4H PRN 10/24 1845 AC 10/27 PO 0604 Albuterol/Ipratropium 3 ML RTQ6H PRN 10/24 184 AC 10/30 IN 2313 Dose Instructions: (1)Guaifenesin/Dextromethorphan: 10 - 20 mL (2)Diphenhydramine HCl: 25 - 50 MG (3)Oxycodone HCl: 5 - 10 MG Allergies Coded Allergies: Codeine (Severe, Hives (VERIFIED WITH PATIENT) 10/27/16) Physical Exam Vital Signs / I&Os Vital Signs Date Time Temp Pulse Resp B/P Pulse O2 O2 Flow FiO2 Ox Delivery Rate 11/02 0532 98.1 75 32 114/59 95 Nasal 2.0 Cannula 11/01 2307 2.0 11/01 2246 98.4 82 27 103/53 92 Nasal 2.0 Cannula 11/01 2211 95 Nasal 2.0 Cannula 11/01 2210 85 Room Air 11/01 2020 Room Air 11/01 1430 98.4 87 39 104/46 95 Room Air 11/01 1049 96/42 11/01 1045 98.2 85 30 100 Nasal 3.0 Cannula 11/01 0900 Nasal 1.0 Cannula 11/01 0846 95 Nasal 4.0 Cannula 11/01 0828 4.0 11/01 0733 97.5 81 29 102/51 92 Nasal 4.0 Cannula I&O 11/02 0000 11/01 1600 11/01 0800 Intake Total 360 360 460 Output Total 262 570 5551 Balance -215 -140 -1290 General Appearance Alert, Oriented X3, Cooperative, No acute distress Lungs decreased breath sounds left side with rhonchi present Cardiovascular Regular rate and rhythm, Normal S1 and S2 Abdomen Normal bowel sounds, Soft, No tenderness Extremities No cyanosis, No clubbing Neurological Cranial nerves intact, No lateralizing signs Psych/Mental Status Mental status normal, Mood normal LAB Results Laboratory Tests 11/02 0355 Chemistry Plasma Sodium (136 - 145 mmol/L) 140 Plasma Potassium (3.5 - 5.1 mmol/L) 3.7 Plasma Chloride (98 - 107 mmol/L) 104 CO2 (Enzymatic) (21 - 32 mmol/L) 28 BUN (7 - 18 mg/dL) 16 Creatinine (0.6 - 1.3 mg/dL) 0.7 Est GFR ( Amer) (mL/min) >60 Est GFR (Non-Af Amer) (mL/min) >60 Glucose (70 - 110 mg/dL) 127 Plasma Calcium (8.5 - 10.1 mg/dL) 8.5 Hematology WBC (4.5 - 11.5 K/uL) 12.3 RBC (4.00 - 5.20 M/uL) 3.04 Hgb (12.0 - 16.0 gm/dL) 8.7 Hct (36.0 - 46.0 %) 26.5 MCV (80 - 100 fL) 87 MCH (26 - 34 pg) 29 RDW (11.6 - 14.8 %) 14.0 Neut % (Auto) (50 - 75 %) Pending Lymph % (Auto) (25 - 40 %) Pending [place] % (Auto) (3 - 14 %) Pending Band Neutrophils % (0 - 8 %) Pending Plt Count, EDTA (150 - 400 K/uL) 1436 PUBS MCHC (31 - 37 g/dL) 33 Miscellaneous JAK2 [id number] Mutation Pending Assessment and Plan Problem List 1. Pneumonia Plan -continued improvement -Switched to oral antimicrobials-Augmentin 875 mg by mouth twice a day -Monitor -Repeat chest x-ray in a.m. 2. Empyema lung Plan -persistent abnormal physical exam -Afebrile but persistent mild leukocytosis -Switched to oral antimicrobials, Augmentin 875 mg by mouth twice a day 3. Thrombocytosis Status Acute Onset Date Unknown Plan -The patient's thrombocytosis discussed with hematology oncology -[place] secondary to reactive thrombocytosis -Outpatient follow-up 4. Iron deficiency anemia Status Chronic Onset Date Unknown Plan -patient with findings of iron deficiency anemia -Begin ferrous sulfate 325 mg by mouth twice a day in a.m. Current status: Fair, improved Anticipated discharge date: Anticipated discharge in 1-2 days Anticipated discharge placement: Home Patient care time: Time spent in chart review, patient interview, physical exam, CPOE, and care documentation: 25 minutes Visit to patient today: 1 Complexity of care: Moderate E&M Codes Rounding: Inpt-Moderate/[id number]
--- NOTE | 2016-11-02 11:16 | NUR ---
NUTRITION FOLLOW UP NOTE: Pt continues on a general diet. Wts fluctuating since 2-13, but not sign changes note. Spoke with MD pt may likely d/c tomorrow depending on white count. RD avail for further consult prn and f/u per portocol. Rec check HgbA1c, noted glucose labs 161, 158, 138 (see labs) fasting.
[2016-11-02 13:11] VITALS: BP 106/48
[2016-11-02 14:51] VITALS: BP 101/51
--- NOTE | 2016-11-02 17:23 | NUR ---
STATES SHE FEELS "MUCH BETTER". HAS BEEN ON RA ALL DAY WITH SATS RUNNING 95%. BS ARE CLEAR ON R BUT DIMINISHED IN BASE WITH COARSE CRACLKES MID L LUNG FEILD AND DIMINISHED IN L BASE. AMBULATES INDEPENDENTLY. MONITOR SHOWS NSR WITH NO ECTOPY.
[2016-11-02 19:15] VITALS: BP 105/51
--- NOTE | 2016-11-02 19:52 | NUR ---
PT SITTING UP IN BED, NO DISTRESS NOTED. PT ALERT AND ORIENTED, COOPERATIVE WITH CARE. PT ABLE TO MAKE NEEDS KNOWN. VSS. PT IS ON ROOM AIR 94%. PT STATES HER PAIN IN 02/20, AND DECLINED PAIN MEDICATION AT THIS TIME. NO OTHER COMPLAINTS, CALL LIGHT IN REACH, WCTM.
[2016-11-03 04:54] VITALS: BP 99/62
[2016-11-03 05:36] VITALS: BP 100/45
--- NOTE | 2016-11-03 05:58 | NUR ---
PT RESTED WELL OVERNIGHT, NO COMPLAINTS. VSS. PT INDEPENDENT WITH ADL'S. AWAITING CHEST XRAY THIS AM. BED IN LOWEST POSITION, CALL LIGHT IN REACH, WCTM.
--- NOTE | 2016-11-03 06:36 | DIAGNOSTIC IMAGING REPORT ---
PROCEDURE: XR CHEST 1 VIEW INDICATION: Follow up pneumonia and empyema. Chest tube removal TECHNIQUE: Portable AP view (0600 hours). COMPARISON: Compared to chest x-ray on 10/30/2016. FINDINGS: Interval removal of left chest tube. No evidence of pneumothorax. There is moderate to marked improvement with resolving bilateral pneumonia (mild to moderate residual changes). Heart and mediastinum are normal. Thorax is normal. IMPRESSION: 1. Removal left chest tube. 2. Moderate to marked improvement with resolving bilateral pneumonia.
--- NOTE | 2016-11-03 08:20 | Discharge Summary ---
Discharge Summary Report Admit Date 10/24/16 Discharge Date 11/03/16 Admission Diagnosis 1. Pneumonia 2. Empyema Discharge Diagnosis 1. Pneumonia 2. Empyema 3. Iron deficiency anemia 4. Thrombocytosis Brief History The patient is a 61-year-old white female with a significant past medical history of nicotine dependence-smoking who presented to [facility] emergency room on the day of admission secondary to complaints of cough and shortness of breath. [facility] ER evaluation was consistent with pneumonia/empyema left side. Secondary to the above, the patient was admitted by Tucker Ramirez M.D. for further evaluation and treatment For other history present illness, past medical history, family history, social history, review of systems, and admission physical examination please see the patient's history and physical examination and ER visit note in the patient's medical record. Hospital Course The following problems and their management were noted during the patient's hospitalization: 1. Pneumonia The patient presented with findings of pneumonia. She was treated with IV followed by by mouth antimicrobials. She was afebrile on discharge. WBC showed improving status throughout her hospitalization. She was discharged on Augmentin 875 mg by mouth twice a day. Outpatient follow-up with PCP next 2. Empyema The patient was admitted with findings of empyema. She underwent chest tube placement. Her status gradually improved throughout her hospitalization. At the time of discharge she was afebrile with improving WBC on oral antimicrobials. Her status was much improved. The patient felt ready for discharge. She was discharged on Augmentin 875 mg by mouth twice a day. Cultures were negative. 3. Iron deficiency anemia The patient was noted to have findings of iron deficiency anemia. She was discharged on iron supplement It was recommended she undergo outpatient follow- up with colonoscopy. 4. Thrombocytosis The patient had findings of thrombocytosis. This was discussed with hematology/ onc This was felt secondary to reactive thrombocytosis. She will follow-up with her PCP for recheck in 1 week. Further workup by hematology/oncology as necessary based on follow-up platelet evaluation. General Appearance Alert, Oriented X3, Cooperative, No acute distress Lungs Normal air movement, Scattered rhonchi left side. Cardiovascular Regular Rate, Normal S1, Normal S2 Abdomen Normal bowel sounds, Soft, No tenderness Neurological Grossly normal Psych/Mental Status Mental status NL, Mood NL Lab/Imaging Laboratory Tests 11/03 0355 Hematology WBC (4.5 - 11.5 K/uL) 11.9 RBC (4.00 - 5.20 M/uL) 3.15 Hgb (12.0 - 16.0 gm/dL) 8.9 Hct (36.0 - 46.0 %) 27.3 MCV (80 - 100 fL) 87 MCH (26 - 34 pg) 28 RDW (11.6 - 14.8 %) 14.4 Neut % (Auto) (50 - 75 %) 60 Lymph % (Auto) (25 - 40 %) 24 Harper % (Auto) (3 - 14 %) 6 Eos % (Auto) (0 - 4 %) 3 Baso % (Auto) (0 - 2 %) 4 Band Neutrophils % (0 - 8 %) 3 Metamyelocytes % (0 - 1 %) 0 Myelocytes (0 - 1 %) 0 Other Cell Type 0 Plt Count, EDTA (150 - 400 K/uL) 1507 Anisocytosis (manual) 1+ PUBS MCHC (31 - 37 g/dL) 33 Discharge Instructions/Meds For other recommendations regarding discharge diet, activity, followup, and discharge medications please see the patient's discharge instructions. Discharge condition: Fair, improved Greater than 30 min. was spent in the patient's discharge preparation including discharge interview and physical examination, progress note, discharge instructions, and discharge summary The patient was interviewed and examined on the day of discharge. E&M Codes Discharge: Inpt >30 min spent/[id number]
[2016-11-03] MEDS ORDERED: AMOXICILLIN/CL875 MG PO (08:23)
[2016-11-03] MEDS ORDERED: PERCOCET1 TA1 PO (08:23)
[2016-11-03] MEDS ORDERED: FERROUS SULFAT325 M1 PO (08:23)
[2016-11-03] MEDS ORDERED: DOCUSATE SODIU100 MG PO (08:24)
--- NOTE | 2016-11-03 08:26 | Provider's Discharge Care Plan ---
Problem, Goal, Plan Problem List 1. Pneumonia Goals: Improve disease control, Prevent disease progress Instructions: Follow up as directed, Take meds as directed 2. Empyema lung Goals: Improve disease control, Prevent disease progress Instructions: Follow up as directed, Take meds as directed 3. Thrombocytosis Goals: Improve disease control, Prevent disease progress Instructions: Follow up as directed, Take meds as directed, Have your platelet count checked with your physician at your next visit 4. Iron deficiency anemia Goals: Improve disease control, Prevent disease progress Instructions: Follow up as directed, Take meds as directed, have your physician recheck your blood count in 2 weeks. Take iron supplementation for 6 months
--- NOTE | 2016-11-03 15:54 | NUR ---
D/C INSTRUCTIONS GONE OVER AND ESCORTED OUT WITH HER SON WHO WILL DRIVE HER HOME.
== END 2016-11-03 15:50 | disposition home or self-care (01) | DRG 121 ==
LOC: ED SRH 13:00 → TRANS SRH 16:14 → CC SRH 18:34 → ACUTE2 SRH 10-30 16:56 → CC SRH 10-30 17:09
PROVIDERS: ADMIT Emergency Medicine Emergency Medical Services
DX: J86.9 Pyothorax without fistula (principal); J18.9 Pneumonia, unspecified organism; R09.02 Hypoxemia; E87.6 Hypokalemia; D47.3 Essential (hemorrhagic) thrombocythemia; D50.9 Iron deficiency anemia, unspecified; R10.9 Unspecified abdominal pain; F17.210 Nicotine dependence, cigarettes, uncomplicated
CPT/HCPCS: 50002; 60001; 70002; 80102; 80118; 80248; 80311; 81687; 82794; 83068; 83455; 83587; 84038; 84044; 85592; 90047; 90065; 90074; 90100; 90131; 90309; 90470; 90616; 91295; 91320; 91400; 91504; 91505; 91556; 91583; 91643; 91672; 92031; 92132; 92235; 92610; 92668; 92670; 92720; 92750; 93004; 94060; 94136; 95059; 95061